=== PATIENT | male | born 1935 | race Hispanic/Latino ===

== ENCOUNTER 2018-03-16 17:40 | Inpatient (IN) | payer MEDICARE, OTHER ==
[2018-03-16 17:59] VITALS: BMI 27.2
--- NOTE | 2018-03-16 19:36 | ED PDOC ---
Arrival/HPI - General Chief Complaint: Shortness Of Breath Time Seen by Provider: 03/16/18 18:34 Historian: Patient - History of Present Illness Narrative History of Present Illness (Text): 03/16/18 18:35 82 year old male, with past medical history of congestive heart failure with last known EF of 20% and MT, presents to the Emergency Department complaining of shortness of breath with exertion for past 2 weeks. Patient informs worsening symptoms associated with orthopnea and PND, prompting her to present to the ED for medical evaluation. Patient denies any other somatic complaints. Patient denies any fever, chills, nausea, vomiting, diarrhea, abdominal pain, chest pain, cough, headache, dizziness, neck pain, back pain, or any other complaints. Patient reports taking double her dose of Lasix (80mg) last night and 1 dose of Lasix (40mg) this morning. Patient informs compliance with his medications today, including Aspirin. PMD: Celso Walker: Dr. Irby Yarder Engineer: [facility] 03/16/18 22:55 Time/Duration: > week Symptom Onset: Gradual Symptom Course: Unchanged Activities at Onset: Light Context: Home Past Medical History - Provider Review Nursing Documentation Reviewed: Yes - Cardiac Hx Atrial Fibrillation: Yes Hx Congestive Heart Failure: Yes Hx Hypertension: Yes - Pulmonary Hx Respiratory Disorders: No - Neurological Hx Neurological Disorder: No - HEENT Hx HEENT Disorder: No - Renal Hx Renal Disorder: No - Endocrine/Metabolic Hx Endocrine Disorders: No - Hematological/Oncological Hx Blood Disorders: No - Integumentary Hx Dermatological Disorder: No - Musculoskeletal/Rheumatological Hx Musculoskeletal Disorders: No Hx Falls: No - Gastrointestinal Hx Gastrointestinal Disorders: No - Genitourinary/Gynecological Hx Genitourinary Disorders: No - Psychiatric Hx Psychophysiologic Disorder: No Hx Substance Use: No - Surgical History Other/Comment: pacemaker 2010 - Anesthesia Hx Anesthesia: Yes - Suicidal Assessment Feels Threatened In Home Enviroment: No Family/Social History - Physician Review Nursing Documentation Reviewed: Yes Family/Social History: No Known Family HX Smoking Status: Never Smoked Hx Alcohol Use: No Hx Substance Use: No Allergies/Home Meds Allergies/Adverse Reactions: Allergies No Known Allergies Allergy (Verified 03/16/18 18:07) Home Medications: Home Meds Medication Instructions Recorded Confirmed Apixaban [Eliquis] 5 mg PO DAILY 09/09/14 03/16/18 Atorvastatin Calcium [Lipitor] 10 mg PO DAILY 09/09/14 03/16/18 Nitroglycerin [Nitroglycerin 0.4 mg SL PRN PRN 09/09/14 03/16/18 Lingual Aerosol] Furosemide [Lasix] 40 mg PO BID 03/16/18 03/16/18 Lisinopril 30 mg PO DAILY 03/16/18 03/16/18 Metoprolol Tartrate [Lopressor] 50 mg PO BID 03/16/18 03/16/18 Review of Systems - Physician Review All systems were reviewed & negative as marked: Yes - Review of Systems Constitutional: absent: Fevers Respiratory: SOB. absent: Cough Cardiovascular: DAS. absent: Chest Pain Gastrointestinal: absent: Abdominal Pain, Diarrhea, Nausea, Vomiting Musculoskeletal: absent: Back Pain, Neck Pain Neurological: absent: Headache, Dizziness Physical Exam Vital Signs Reviewed: Yes Vital Signs Temp Pulse Resp BP Pulse Ox 03/16/18 18:06 98 03/16/18 17:59 97.6 F 60 18 109/86 96 Temperature: Afebrile Blood Pressure: Normal Pulse: Regular Respiratory Rate: Normal Appearance: Positive for: Well-Appearing, Non-Toxic, Comfortable Pain Distress: None Mental Status: Positive for: Alert and Oriented X 3 - Systems Exam Head: Present: Atraumatic, Normocephalic Pupils: Present: PERRL Extroacular Muscles: Present: EOMI Conjunctiva: Present: Normal Mouth: Present: Moist Mucous Membranes Neck: Present: Normal Range of Motion Respiratory/Chest: Present: Good Air Exchange, Other (Bilateral crackles). No: Respiratory Distress, Accessory Muscle Use Cardiovascular: Present: Regular Rate and Rhythm, Normal S1, S2. No: Murmurs Abdomen: No: Tenderness, Distention, Peritoneal Signs Back: Present: Normal Inspection Upper Extremity: Present: Normal Inspection. No: Cyanosis, Edema Lower Extremity: Present: Edema (bilateral +2 pitting edema ) Neurological: Present: GCS=15, CN II-XII Intact, Speech Normal Skin: Present: Warm, Dry, Normal Color. No: Rashes Psychiatric: Present: Alert, Oriented x 3, Normal Insight, Normal Concentration Medical Decision Making ED Course and Treatment: 03/16/18 18:29 Impression: 82 year old male presents to the Emergency Department complaining of shortness of breath. Likely CHF exacerbation given crackles, b.l LE edema. Pt speaking in full sentences in NAD. No chest pain. No hx of blood clots. Plan: -- EKG -- Labs -- Chest X-ray -- Lasix -- Reassess and disposition Prior Visits: Notes and results from previous visits were reviewed. Progress Notes: 03/16/18 18:30 EKG: Ordered, reviewed, and independently interpreted the EKG. Rate : 61 BPM Rhythm : Paced rhythm Interpretation : No STEMI. 03/16/18 21:30 NO RUQ pain. No abdominal pain pt in NAD, breathing comfortably, speaking full sentences. BNP 50k, CHF exacerbation. Lasix ordered. appreciate consult w/. Dr. Gonzalez: to admit to her service. Consult order placed to Dr. Mendoza (Cards) - RAD Interpretation Radiology Orders: 03/16/18 18:35 CHEST TWO VIEWS (PA/LAT) [RAD] Stat - Medication Orders Current Medication Orders: Discontinued Medications Furosemide (Lasix) 40 mg IVP STAT STA Stop: 03/16/18 19:00 - Scribe Statement The provider has reviewed the documentation as recorded by the Scribe Raymond Ashraf. All medical record entries made by the Scribe were at my direction and personally dictated by me. I have reviewed the chart and agree that the record accurately reflects my personal performance of the history, physical exam, medical decision making, and the department course for this patient. I have also personally directed, reviewed, and agree with the discharge instructions and disposition. Disposition/Present on Arrival - Present on Arrival Any Indicators Present on Arrival: No History of DVT/PE: No History of Uncontrolled Diabetes: No Urinary Catheter: No History of Decub. Ulcer: No History Surgical Site Infection Following: None - Disposition Have Diagnosis and Disposition been Completed?: Yes Diagnosis: Acute CHF Disposition: HOSPITALIZED Disposition Time: 21:30 Patient Problems: Current Active Problems Problem Status Onset Acute CHF Acute Condition: GOOD
[2018-03-16 20:23] LABS: BASO # 0.01 K/mm3 (0.0-2.0); BASO % 0.1 % (0.0-3.0); EOS % 0.1 % (1.5-5.0); GRAN # 7.68 (1.4-6.5); GRAN % 79.6 % (50.0-68.0); HEMOGLOBIN 10.9 g/dL (14.0-18.0); LYMPH # 1.2 (1.2-3.4); LYMPH % 12.4 % (22.0-35.0); MEAN CELL VOLUME 87.3 fl (80.0-105.0); MEAN CORPUSCULAR HEMOGLOBIN 27.7 pg (25.0-35.0); MEAN CORPUSCULAR HGB CONC 31.8 g/dl (31.0-37.0); MEAN PLATELET VOLUME 10.9 fl (7.0-11.0); MONO # 0.8 (0.1-0.6); MONO % 7.8 % (1.0-6.0); RBC 3.93 10^6/uL (3.5-6.1); RED CELL DISTRIBUTION WIDTH 15.4 % (11.5-14.5); WHITE BLOOD COUNT 9.7 10^3/ul (4.5-11.0)
[2018-03-16 20:38] LABS: ALB/GLOB RATIO 1.2 (1.1-1.8); ALBUMIN 3.9 g/dL (3.0-4.8)
[2018-03-16 20:49] LABS: TROPONIN I 0.03 ng/mL
--- NOTE | 2018-03-16 23:14 | CARD ---
APPROVED REPORT Date of service: 03/16/2018 EKG Measurement Heart [id number] <Conclusion> AV sequential or dual chamber electronic pacemaker
[2018-03-17 07:10] LABS: MEAN CELL VOLUME 86.3 fl (80.0-105.0); MEAN CORPUSCULAR HEMOGLOBIN 27.4 pg (25.0-35.0); MEAN CORPUSCULAR HGB CONC 31.7 g/dl (31.0-37.0); RBC 3.65 10^6/uL (3.5-6.1); RED CELL DISTRIBUTION WIDTH 15.3 % (11.5-14.5); WHITE BLOOD COUNT 8.5 10^3/ul (4.5-11.0)
[2018-03-17 07:24] LABS: IRON 33 ug/dL (45-180)
[2018-03-17 07:32] LABS: ALB/GLOB RATIO 1.2 (1.1-1.8); ALBUMIN 3.4 g/dL (3.0-4.8); ALT/SGPT 461 U/L (7-56); AST/SGOT 504 U/L (17-59); BILIRUBIN,DIRECT 0.5 mg/dL (0.0-0.4); HDL CHOLESTEROL 33 mg/dL (29-60)
[2018-03-17 07:36] LABS: LDL CHOLESTEROL 63 mg/dL (0-129)
[2018-03-17 07:38] LABS: CALCIUM 8.7 mg/dL (8.4-10.5)
[2018-03-17 07:44] LABS: % IRON SATURATION 9 % (20-55); TOTAL IRON BINDING CAPACITY 376 ug/dL (261-462)
--- NOTE | 2018-03-17 09:46 | RAD ---
Date of service: 03/16/2018 HISTORY: sob COMPARISON: No prior. TECHNIQUE: Chest PA and lateral FINDINGS: LUNGS: No active pulmonary disease. PLEURA: No significant pleural effusion identified. No pneumothorax apparent. CARDIOVASCULAR: Moderate cardiomegaly. Dual lead pacemaker OSSEOUS STRUCTURES: No significant abnormalities. VISUALIZED UPPER ABDOMEN: Normal. OTHER FINDINGS: The aorta is mildly tortuous and calcified IMPRESSION: No active disease.
[2018-03-17 12:56] LABS: FOLATE > 20.0 ng/mL
[2018-03-17] MEDS: Milrinone 20mg/100ml D5W 100 ML IV PRN (17:47)
--- NOTE | 2018-03-17 18:53 | CARD ---
APPROVED REPORT Date of service: 03/17/2018 EXAM: Two-dimensional and M-mode echocardiogram with Doppler and color Doppler. INDICATION Congestive Heart Failure S/P AICD, CMP 2D DIMENSIONS Left Atrium (2D)5.2 (1.6-4.0cm)IVSd1.1 (0.7-1.1cm) LVDd6.2 (3.9-5.9cm)PWd1.2 (0.7-1.1cm) LVDs5.8 (2.5-4.0cm)FS (%) 6.7 % LVEF (%)14.7 (>50%) M-Mode DIMENSIONS Aortic Root3.70 (2.2-3.7cm)Aortic Cusp Exc.1.00 (1.5-2.0cm) Aortic Valve AoV Peak Cdsucfad576.0cm/sAoV VTI34.8cmAO Peak GR.16mmHg LVOT Peak Wemoeqbi94.2cm/sLVOT VTI15.20cmAO Mean GR.7mmHg Mitral Valve MV E Uzvgqhpj39.9cm/sMV A Fsctjguw22.5cm/sE/A ratio2.2 TDI Lateral E' Peak V5.65cm/sMedial E' Peak V3.90cm/sE/Lateral E'15.2 E/Medial E'22.0 Pulmonary Valve PV Peak Ghuhksgc18.2cm/sPV Peak Grad.2mmHg Tricuspid Valve TR Peak Xhoxvhvk951ws/sRAP [id number] Peak Gr.57mmHg DLMX71seVw LEFT VENTRICLE The Left Ventricle is mildly dilated. There is normal left ventricular wall thickness. The ejection fraction is severely impaired. EF-20% (on Primacor) There is global hypokinesis of the left ventricle. A fib No left ventricle thrombus noted on this study. There is no ventricular septal defect visualized. There is no left ventricular aneurysm. There is no mass noted in the left ventricle. RIGHT VENTRICLE The right ventricle is mildly to moderately dilated. There is normal right ventricular wall thickness. Systolic function is mildly to moderately reduced. ATRIA The left atrium is mildly dilated. The right atrium is mildly dilated. The interatrial septum is intact with no evidence for an atrial septal defect. AORTIC VALVE The aortic valve is calcified and displays decreased opening. There is trace aortic regurgitation. Aotic sclerosis Vs Mild As There is no aortic valvular vegetation. MITRAL VALVE The mitral valve is thickened but opens well. Mitral regurgitation is moderate. There is no mitral valve stenosis. There is no evidence of mitral valve prolapse. TRICUSPID VALVE The tricuspid valve leaflets are thickened , but open well. There is moderate tricuspid regurgitation.RVSP-67 mmof hg. There is moderate pulmonary hypertension. There is no tricuspid valve stenosis. There is no tricuspid valve prolapse or vegetation. PULMONIC VALVE The pulmonary valve is normal in structure. There is trace to mild pulmonic valvular regurgitation. There is no pulmonic valvular stenosis. GREAT VESSELS The aortic root is normal in size. The ascending aorta is normal in size. The pulmonary artery is normal. The IVC is dilated. PERICARDIAL EFFUSION There is small left pleural effusion. There is no pericardial effusion. <Conclusion> Four chamber dilatation, C/w CMP. The ejection fraction is severely impaired. EF-20% (on Primacor) There is trace aortic regurgitation. Aotic sclerosis Vs Mild As Mitral regurgitation is moderate. There is moderate tricuspid regurgitation.RVSP-67 mmof hg. There is moderate pulmonary hypertension. There is trace to mild pulmonic valvular regurgitation. The IVC is dilated. There is no pericardial effusion. There is small left pleural effusion.
--- NOTE | 2018-03-17 19:56 | CON ---
DATE OF CONSULTATION: 03/17/2018 CONSULT SERVICE: Cardiology. REASON FOR CONSULTATION: Followup of obstructive, but decompensated congestive heart failure, [id number]-[id number], secondary to systolic dysfunction. BRIEF CLINICAL HISTORY: This is an 82-year-old male with a past medical history significant for cardiomyopathy, decreased LV function, ejection fraction 20%, being followed by Dr. Mandujano at [facility], status post defibrillator placed 4-5 years ago, came in with a complaint of worsening shortness of breath. PAST HISTORY: Significant for congestive heart failure, atrial fibrillation, cardioversion and ICD placement, being followed by Dr. Mandujano at [facility], history of cardiac catheterization 3 years ago according to him and was told no significant blockage, medical treatment recommended, but he has mentioned that heart muscles are weak, ejection fraction low, not sure how low it is. PAST SURGICAL HISTORY: Significant for cataract surgery, history of AICD placed 3-4 years ago at [facility], history of paroxysmal atrial fibrillation. CURRENT MEDICATIONS: The patient is taking at home nitroglycerine sublingual, metoprolol 50 mg, lisinopril 30 mg, Lasix 40, atorvastatin 10, Eliquis 5 mg daily. ALLERGIES: NO KNOWN DRUG ALLERGIES. REVIEW OF SYSTEMS: As per HPI. PHYSICAL EXAMINATION: VITAL SIGNS: Height of the patient 5 feet 10 inches, weight of the patient 196 pounds, body mass index 34 kg/m2. Temperature afebrile, heart rate 63, blood pressure 125/90. HEENT: PERRLA, intact. NECK: Supple. No carotid bruit or thyromegaly. CHEST: Clear to auscultation. HEART: S1 and S2, regular. ABDOMEN: Soft. EXTREMITIES: Clubbing and cyanosis negative. BLOOD WORKUP: WBC 8.5, hemoglobin 10, hematocrit 31.5, platelet count 341. Chemistry shows sodium 130, potassium 4.7, chloride 104, carbon dioxide 27, anion gap of 12, BUN 39, creatinine 2.7. BNP 49,900. Chest x-ray consistent with cardiomegaly and congestive heart failure. EKG shows AV sequential pacing, underlying normal sinus mechanism. IMPRESSION: This is an 82-year-old male with a past medical history significant for alcohol abuse in the past, history of cardiomyopathy, not sure ischemic or nonischemic, being followed by Dr. Mandujano at [facility], he is status post automatic implantable cardioverter-defibrillator 3-4 years ago, cardiac catheterization, was told no significant blockage, but heart muscles are weak, was on lisinopril, got the renal function worse, so was on hold and then admitted here with acute decompensated congestive heart failure, elevated BNP, chest x-ray consistent with cardiomyopathy, history of paroxysmal atrial fibrillation, on Eliquis, congestive heart failure [id number] secondary to systolic dysfunction. RECOMMENDATION: We will get an echo to assess LV function and valvular function. Continue Eliquis, continue Lasix, continue lisinopril, monitor renal function closely. Further recommendation depending upon the hospital course. We will get the lipid profile, TSH, hemoglobin A1c, and do further anemia workup. Thank you, Dr. Gonzalez, for providing us the opportunity in taking care of the patient. We will follow with you. Dayan Saez MD
[2018-03-18 07:25] LABS: BASO # 0.03 K/mm3 (0.0-2.0); BASO % 0.3 % (0.0-3.0); EOS # 0.2 (0.0-0.7); EOS % 1.9 % (1.5-5.0); GRAN # 7.15 (1.4-6.5); GRAN % 78.7 % (50.0-68.0); LYMPH # 1.2 (1.2-3.4); LYMPH % 13.2 % (22.0-35.0); MEAN CELL VOLUME 85.4 fl (80.0-105.0); MEAN CORPUSCULAR HEMOGLOBIN 27.4 pg (25.0-35.0); MEAN CORPUSCULAR HGB CONC 32.1 g/dl (31.0-37.0); MEAN PLATELET VOLUME 10.9 fl (7.0-11.0); MONO # 0.5 (0.1-0.6); MONO % 5.9 % (1.0-6.0); RBC 3.28 10^6/uL (3.5-6.1); WHITE BLOOD COUNT 9.1 10^3/ul (4.5-11.0)
[2018-03-18] MEDS: Milrinone 20mg/100ml D5W 100 ML IV PRN (07:34)
[2018-03-18 08:10] LABS: CALCIUM 8.2 mg/dL (8.4-10.5)
--- NOTE | 2018-03-18 08:12 | CP.PCM.PN ---
Subjective - Date & Time of Evaluation Date of Evaluation: 03/18/18 Time of Evaluation: 06:20 - Subjective Subjective: Awake, alert, no distress,denies chest pain Reason for consultation and follow up: Cardiac evaluation of shortness of breath,exacerbation of acute on chronic systolic dysfunction congestive heart failure. Seen and examined by me and Dr. Mendoza Objective - Vital Signs/Intake and Output Vital Signs (last 24 hours): Temp Pulse Resp BP Pulse Ox 98.8 F 61 18 98/56 L 98 03/18/18 06:00 03/18/18 07:34 03/18/18 06:00 03/18/18 07:34 03/18/18 06:00 Intake and Output: 03/18/18 03/18/18 06:59 18:59 Intake Total 608 100 Output Total 2400 Balance -1792 100 - Medications Medications: Current Medications Apixaban (Eliquis) 5 mg PO DAILY [facility]; Protocol Last Admin: 03/17/18 09:53 Dose: 5 mg Apixaban (Eliquis) 2.5 mg PO BID [facility]; Protocol Atorvastatin Calcium (Lipitor) 10 mg PO DAILY [facility] Last Admin: 03/17/18 09:54 Dose: 10 mg Famotidine (Pepcid) 40 mg PO HS [facility] Last Admin: 03/17/18 21:59 Dose: 40 mg Furosemide (Lasix) 40 mg IVP Q12 [facility] Last Admin: 03/17/18 21:59 Dose: 40 mg Milrinone Lactate/Dextrose (Primacor 20mg/100ml D5w) 100 mls @ 5.334 mls/hr IV .[id number] PRN; Protocol PRN Reason: TITRATE PER MD ORDER Last Admin: 03/18/18 07:34 Dose: 0.2 mcg/kg/min, 5.334 mls/hr Losartan Potassium (Cozaar) 25 mg PO DAILY [facility] Metoprolol Tartrate (Lopressor) 50 mg PO BID [facility] Last Admin: 03/17/18 17:43 Dose: 50 mg Nitroglycerin (Nitrostat Sl Tab) 0.4 mg SL Q5M PRN PRN Reason: CHEST PAIN Thiamine HCl (Vitamin B1 Tab) 100 mg PO DAILY [facility] - Labs Labs: 03/18/18 06:00 03/17/18 06:30 - Constitutional Appears: Non-toxic, No Acute Distress - Eye Exam Eye Exam: Normal appearance Pupil Exam: NORMAL ACCOMODATION - ENT Exam ENT Exam: Mucous Membranes Moist - Respiratory Exam Respiratory Exam: Decreased Breath Sounds, Clear to Ausculation Bilateral, NORMAL BREATHING PATTERN - Cardiovascular Exam Cardiovascular Exam: +S1, +S2 Additional comments: AICD/PPM V pacing at 60's - GI/Abdominal Exam GI & Abdominal Exam: Soft, Normal Bowel Sounds - Extremities Exam Additional comments: 1-2+ edema - Neurological Exam Neurological Exam: Alert, Awake, Oriented x3 - Psychiatric Exam Psychiatric exam: Normal Affect, Normal Mood - Skin Skin Exam: Dry, Normal Color, Warm Assessment and Plan - Assessment and Plan (Free Text) Assessment: An 82 year old male who came in to the ER due to worsening shortness of breath for the past 2 weeks. history of congestive heart failure, dilated cardiomyopathy, decreased LV function, LVEF 20 %. Follows up with Dr. Mandujano at [facility]. history of AICD 4-5 years ago, PPM 2009,hypertension, history of atrial fibrillation (on Eliquis). compliant with his medications. Exacerbation of acute on chronic systolic dysfunction congestive heart failure. started on Primacor drip. Plan: Denies shortness of breath,denies chest pain On Primacor drip,continue drip for 48-72 Hours. Echo done -Four chamber dilatation, consistent with cardiomyopathy Severely impaired ejection fraction LVEF 20 % with Primacor Trace AR, moderate MR/TR, RVSP 67 mmHg Moderate Pulmonary hypertension Trace to mild Pulmonic valve regurgitation No pericardial effusion, small pleural left effusion Continue Lasix to diurese On Eliquis 2.5 mgBID Lipitor 10 mg daily, Lasix 40 mg every 12 hours Cozaar 25m g daily, Lopressor 50 mg BID, Milrinone drip 0.2 mg/kg/min Heart rate V-paving at 60's Blood pressure controlled Replenish potassium Continue current treatment Continue current medications Chart reviewed Will follow up Plan and treatment discussed with Dr. Mendoza
[2018-03-18] MEDS ORDERED: Potassium Chloride 20 mEq ER Tab PO STA (08:37)
--- NOTE | 2018-03-18 09:05 | CP.PCM.CON ---
<Deuce Vick - Last Filed: 03/18/18 14:24> History of Present Illness - History of Present Illness History of Present Illness: Deuce Vick DO, PGY-2: Nephrology Consult Note for Dr. Elizabeth 82 year old [place] male with a past medical history of CHF with EF of 20%, pacemaker, atrial fibrillation on Eliquis, CKD, and emphysema who [place] [facility] with 3 months of worsening dyspnea. He reports walking 17 to 18 city blocks, but for some reason three months ago he has gradually developed worsened shortness of breath and now unable to walk 2 city blocks without stopping. He reports first knowing that he had some renal insufficiency 3 months ago. He reports that at the time his kidney function was noted to be impaired his Lisinopril was stopped immediatelty. He reports taking Lasix 80 mg daily in the morning and 40 mg in the evening; however, increasing the evening dose to 80 mg a day or so before he came into the ED here in [place]. On review of system he admits to dyspnea, malaise, decreased appetite, increased lower extremity edema and dyspnea. He denies chest pain, dysuria, polyruia, nausea, vomiting, diarrhea, anorexia, or dysgeusia. He denies taking NSAIDs. 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 Review of Systems - Review of Systems All systems: reviewed and no additional remarkable complaints except (as per HPI) Past Patient History - Past Medical History & Family History Past Medical History?: Yes - Past Social History Smoking Status: Former Smoker - CARDIAC Hx Congestive Heart Failure: Yes Hx Hypertension: Yes - PULMONARY Hx Respiratory Disorders: No - NEUROLOGICAL Hx Neurological Disorder: No - HEENT Hx HEENT Problems: Yes Hx Cataracts: Yes Hx Glaucoma: Yes - RENAL Hx Renal Failure: Yes (high BUN(as per PT)) - ENDOCRINE/METABOLIC Hx Endocrine Disorders: Yes Hx Diabetes Mellitus Type 2: Yes (borderline/diet control) - HEMATOLOGICAL/ONCOLOGICAL Hx Blood Disorders: Yes Hx Anemia: Yes - INTEGUMENTARY Hx Dermatological Problems: No - MUSCULOSKELETAL/RHEUMATOLOGICAL Hx Musculoskeletal Disorders: Yes Hx Arthritis: Yes Hx Falls: No Other/Comment: sciatica - GASTROINTESTINAL Hx Gastrointestinal Disorders: No - GENITOURINARY/GYNECOLOGICAL Hx Genitourinary Disorders: No - PSYCHIATRIC Hx Psychophysiologic Disorder: No Hx Substance Use: No - SURGICAL HISTORY Other/Comment: pacemaker 2010, cataract removal - ANESTHESIA Hx Anesthesia: Yes Meds Allergies/Adverse Reactions: Allergies Allergy/AdvReac Type Severity Reaction Status Date / Time No Known Allergies Allergy Verified 03/16/18 18:07 - Medications Medications: Current Medications Apixaban (Eliquis) 5 mg PO DAILY [facility]; Protocol Last Admin: 03/17/18 09:53 Dose: 5 mg Apixaban (Eliquis) 2.5 mg PO BID [facility]; Protocol Atorvastatin Calcium (Lipitor) 10 mg PO DAILY [facility] Last Admin: 03/17/18 09:54 Dose: 10 mg Famotidine (Pepcid) 40 mg PO HS [facility] Last Admin: 03/17/18 21:59 Dose: 40 mg Furosemide (Lasix) 40 mg IVP Q12 [facility] Last Admin: 03/17/18 21:59 Dose: 40 mg Milrinone Lactate/Dextrose (Primacor 20mg/100ml D5w) 100 mls @ 5.334 mls/hr IV .[id number] PRN; Protocol PRN Reason: TITRATE PER MD ORDER Last Admin: 03/18/18 07:34 Dose: 0.2 mcg/kg/min, 5.334 mls/hr Losartan Potassium (Cozaar) 25 mg PO DAILY [facility] Metoprolol Tartrate (Lopressor) 50 mg PO BID [facility] Last Admin: 03/17/18 17:43 Dose: 50 mg Nitroglycerin (Nitrostat Sl Tab) 0.4 mg SL Q5M PRN PRN Reason: CHEST PAIN Thiamine HCl (Vitamin B1 Tab) 100 mg PO DAILY [facility] Physical Exam - Constitutional Appears: Non-toxic, No Acute Distress - Head Exam Head Exam: ATRAUMATIC, NORMOCEPHALIC - Eye Exam Eye Exam: EOMI, Normal appearance - ENT Exam ENT Exam: Mucous Membranes Moist - Neck Exam Neck exam: Positive for: Normal Inspection Additional comments: no significant JVD - Respiratory Exam Respiratory Exam: Rales (right greater than left), Wheezes (bilateral), NORMAL BREATHING PATTERN - Cardiovascular Exam Cardiovascular Exam: +S1, +S2 Additional comments: barely audible heart sounds - GI/Abdominal Exam GI & Abdominal Exam: Normal Bowel Sounds. absent: Guarding, Rebound - Extremities Exam Extremities exam: Positive for: normal inspection, pedal pulses present. Negative for: calf tenderness - Neurological Exam Neurological exam: Alert, CN II-XII Intact, Oriented x3 - Psychiatric Exam Psychiatric exam: Normal Affect, Normal Mood - Skin Skin Exam: Dry, Intact, Normal Color, Warm Results - Vital Signs Recent Vital Signs: Last Vital Signs Temp 98.8 F 03/18/18 06:00 Pulse 61 03/18/18 07:34 Resp 18 03/18/18 06:00 BP 98/56 L 03/18/18 07:34 Pulse Ox 98 03/18/18 06:00 - Labs Result Diagrams: 03/18/18 06:00 03/18/18 07:00 Labs: Laboratory Results - last 24 hr 03/17/18 03/17/18 03/18/18 06:30 06:30 06:00 WBC 9.1 RBC 3.28 L Hgb 9.0 L Hct 28.0 L MCV 85.4 MCH 27.4 MCHC 32.1 RDW 15.0 H Plt Count 299 MPV 10.9 Gran % 78.7 H Lymph % (Auto) 13.2 L [place] % (Auto) 5.9 Eos % (Auto) 1.9 Baso % (Auto) 0.3 Gran # 7.15 H Lymph # (Auto) 1.2 [place] # (Auto) 0.5 Eos # (Auto) 0.2 Baso # (Auto) 0.03 Sodium Potassium Chloride Carbon Dioxide Anion Gap BUN Creatinine Est GFR ( Amer) Est GFR (Non-Af Amer) Random Glucose Hemoglobin A1c 6.9 H Calcium Phosphorus Magnesium Vitamin B12 882 Folate > 20.0 03/18/18 07:00 WBC RBC Hgb Hct MCV MCH MCHC RDW Plt Count MPV Gran % Lymph % (Auto) [place] % (Auto) Eos % (Auto) Baso % (Auto) Gran # Lymph # (Auto) [place] # (Auto) Eos # (Auto) Baso # (Auto) Sodium 137 Potassium 3.4 L Chloride 101 Carbon Dioxide 29 Anion Gap 10 BUN 48 H Creatinine 2.8 H Est GFR ( Amer) 26 Est GFR (Non-Af Amer) 22 Random Glucose 111 H Hemoglobin A1c Calcium 8.2 L Phosphorus 3.0 Magnesium 2.1 Vitamin B12 Folate Assessment & Plan (1) DOREEN (acute kidney injury) Assessment and Plan: Likely secondary to cardiorenal syndrome Follow up renal US, PTH, 25-hydroxyvitamin D, urine total protein to creatinine ratio, urine microalbumin to creatinine ratio, urine to total protein to creatinine ratio Status: Acute (2) Acute CHF Assessment and Plan: Agree with Milrinone renally dosed Lasix 40 mg BID Status: Acute (3) Atrial fibrillation Assessment and Plan: Eliquis 2.5 mg BID Metoprolol Tartarate 50 mg BID Status: Acute (4) Iron deficiency Assessment and Plan: Ferrous sucrose 100 mg IVP daily Status: Acute - Assessment and Plan (Free Text) Assessment: 82 year old male with a past medical history of systolic HF, atrial fibrillation on Eliquis, emphysema, and CKD who presents with worsening exertional dyspnea and was found to an acute CHF exacerbation and DOREEN on CKD. We will continue to follow with you. - Date & Time Date: 03/18/18 Time: 10:02 <Stew Elizabeth - Last Filed: 03/19/18 07:38> Meds - Medications Medications: Current Medications Apixaban (Eliquis) 5 mg PO DAILY [facility]; Protocol Last Admin: 03/17/18 09:53 Dose: 5 mg Apixaban (Eliquis) 2.5 mg PO BID [facility]; Protocol Last Admin: 03/18/18 17:52 Dose: 2.5 mg Atorvastatin Calcium (Lipitor) 10 mg PO DAILY [facility] Last Admin: 03/18/18 10:07 Dose: 10 mg Famotidine (Pepcid) 40 mg PO HS [facility] Last Admin: 03/18/18 21:34 Dose: Not Given Furosemide (Lasix) 40 mg IVP 0600,1800 [facility] Last Admin: 03/19/18 06:54 Dose: 40 mg Guaifenesin (Robitussin) 100 mg PO Q4H PRN PRN Reason: Cough Last Admin: 03/18/18 17:52 Dose: 100 mg Milrinone Lactate/Dextrose (Primacor 20mg/100ml D5w) 100 mls @ 5.334 mls/hr IV .[id number] PRN; Protocol PRN Reason: TITRATE PER MD ORDER Last Admin: 03/19/18 03:38 Dose: 0.2 mcg/kg/min, 5.334 mls/hr Iron Sucrose 100 mg/ Sodium (Chloride) 105 mls @ 210 mls/hr IVPB DAILY [facility] Stop: 03/22/18 10:29 Last Admin: 03/18/18 14:45 Dose: 210 mls/hr Losartan Potassium (Cozaar) 25 mg PO DAILY [facility] Metoprolol Tartrate (Lopressor) 50 mg PO BID [facility] Last Admin: 03/18/18 17:52 Dose: 50 mg Nitroglycerin (Nitrostat Sl Tab) 0.4 mg SL Q5M PRN PRN Reason: CHEST PAIN Spironolactone (Aldactone) 12.5 mg PO BID [facility] Last Admin: 03/18/18 17:52 Dose: 12.5 mg Thiamine HCl (Vitamin B1 Tab) 100 mg PO DAILY [facility] Last Admin: 03/18/18 10:07 Dose: 100 mg Results - Vital Signs Recent Vital Signs: Last Vital Signs Temp 98.8 F 03/19/18 06:00 Pulse 59 L 03/19/18 06:00 Resp 18 03/19/18 06:00 BP 118/57 L 03/19/18 06:54 Pulse Ox 97 03/19/18 06:00 - Labs Result Diagrams: 03/18/18 06:00 03/18/18 07:00 Labs: Laboratory Results - last 24 hr 03/18/18 03/18/18 03/18/18 06:00 06:30 07:00 WBC 9.1 RBC 3.28 L Hgb 9.0 L Hct 28.0 L MCV 85.4 MCH 27.4 MCHC 32.1 RDW 15.0 H Plt Count 299 MPV 10.9 Gran % 78.7 H Lymph % (Auto) 13.2 L [place] % (Auto) 5.9 Eos % (Auto) 1.9 Baso % (Auto) 0.3 Gran # 7.15 H Lymph # (Auto) 1.2 [place] # (Auto) 0.5 Eos # (Auto) 0.2 Baso # (Auto) 0.03 Sodium 137 Potassium 3.4 L Chloride 101 Carbon Dioxide 29 Anion Gap 10 BUN 48 H Creatinine 2.8 H Est GFR ( Amer) 26 Est GFR (Non-Af Amer) 22 Random Glucose 111 H Calcium 8.2 L Phosphorus 3.0 Magnesium 2.1 Ferritin 29.7 25-OH Vitamin D Total Urine Color Urine Appearance Urine pH Ur Specific [place] Urine Protein Urine Glucose (UA) Urine Ketones Urine Blood Urine Nitrate Urine Bilirubin Urine Urobilinogen Ur Leukocyte Esterase Ur Random Creatinine Ur Random Sodium Ur Random Urea Nitrogn 03/18/18 03/18/18 03/18/18 08:45 08:45 08:45 WBC RBC Hgb Hct MCV MCH MCHC RDW Plt Count MPV Gran % Lymph % (Auto) [place] % (Auto) Eos % (Auto) Baso % (Auto) Gran # Lymph # (Auto) [place] # (Auto) Eos # (Auto) Baso # (Auto) Sodium Potassium Chloride Carbon Dioxide Anion Gap BUN Creatinine Est GFR ( Amer) Est GFR (Non-Af Amer) Random Glucose Calcium Phosphorus Magnesium Ferritin 25-OH Vitamin D Total Urine Color Yellow Urine Appearance Clear Urine pH 6.5 Ur Specific [place] <= 1.005 Urine Protein Negative Urine Glucose (UA) Negative Urine Ketones Negative Urine Blood Negative Urine Nitrate Negative Urine Bilirubin Negative Urine Urobilinogen 0.2 Ur Leukocyte Esterase Negative Ur Random Creatinine Ur Random Sodium 105 Ur Random Urea Nitrogn 372 03/18/18 03/18/18 08:45 10:30 WBC RBC Hgb Hct MCV MCH MCHC RDW Plt Count MPV Gran % Lymph % (Auto) [place] % (Auto) Eos % (Auto) Baso % (Auto) Gran # Lymph # (Auto) [place] # (Auto) Eos # (Auto) Baso # (Auto) Sodium Potassium Chloride Carbon Dioxide Anion Gap BUN Creatinine Est GFR ( Amer) Est GFR (Non-Af Amer) Random Glucose Calcium Phosphorus Magnesium Ferritin 25-OH Vitamin D Total 40.5 Urine Color Urine Appearance Urine pH Ur Specific [place] Urine Protein Urine Glucose (UA) Urine Ketones Urine Blood Urine Nitrate Urine Bilirubin Urine Urobilinogen Ur Leukocyte Esterase Ur Random Creatinine 35 Ur Random Sodium Ur Random Urea Nitrogn Attending/Attestation - Attestation I have personally seen and examined this patient.: Yes I have fully participated in the care of the patient.: Yes I have reviewed all pertinent clinical information: Yes Notes (Text): Patient seen and examined; I agree with the resident's note as above with the following additions/edits: 82 yo M w/ pmh of cardiomyopathy s/p AICD, afib on eliquis, and worsening renal failure, admitted with acute decompensated systolic CHF, nephrology being consulted for renal insufficiency; Patient reports worsening dyspnea lately and overall has gained ~13 lbs over past few months; he has known about his renal insufficiency and says that serum creatinine was at one point in the 3's and so he was taken off lisinopril; Patient on this admission started on inotropic support by cardiology with abilio cavazos; hemodynamically stable and responding to bolus doses of IV diuretics with lasix 40 mg q12h, achieving 1.8L neg fluid balance; symptomatically improved but still evidence of volume overload on exam with elevated JVD and bilateral lower ext edema; Renal function currently stable; mild increase in serum creatinine although patient did receive single dose of TONIA inhibitor yesterday; will hold all TONIA inhibitors/ARBs for now but may be able to restart at low dose tomorrow if renal function remains stable; Mild hypokalemia noted, supplemented; will start low dose aldactone 12.5 mg bid to help offset hypokalemia and ensuing metabolic alkalosis from loop diuretics; On B-blockers, continue per cardiology; Anemia, likely due to renal insufficiency/chronic disease but has iron deficiency component; will start IV iron 100 mg daily x 5 doses; Thank you for this referral, please feel free to contact us at any time.
[2018-03-18 09:14] LABS: PH,URINE 6.5 (4.7-8.0); URINE APPEARANCE CLEAR (CLEAR); URINE BILIRUBIN NEGATIVE (NEGATIVE); URINE BLOOD NEGATIVE (NEGATIVE); URINE COLOR YELLOW (YELLOW); URINE GLUCOSE (UA) NEGATIVE (NEGATIVE); URINE LEUKOCYTE ESTERASE NEGATIVE Leu/uL (NEGATIVE); URINE PROTEIN NEGATIVE mg/dL (<30 mg/dL); URINE UROBILINOGEN 0.2 E.U./dL (<1 E.U./dL)
--- NOTE | 2018-03-18 13:08 | US ---
Date of service: 03/18/2018 HISTORY: [email or web address] COMPARISON: None. TECHNIQUE: Sonographic evaluation of the right upper quadrant of the abdomen. FINDINGS: LIVER: Measures 17.5 cm in length. Hepatopedal blood flow. Fatty infiltration manifest ultrasonographically as increased echogenicity of the liver parenchyma. No mass. No intrahepatic bile duct dilatation. GALLBLADDER: Unremarkable. No gallstones. COMMON BILE DUCT: Measures 5.5 mm. No stones. No dilatation. PANCREAS: Unremarkable as visualized. No mass. No ductal dilatation. RIGHT KIDNEY: Measures 4.5 x 10.7 cm in length. Normal echogenicity. No calculus, mass, or hydronephrosis. AORTA: No aneurysmal dilatation. IVC: Unremarkable. OTHER FINDINGS: Incidental right pleural effusion. IMPRESSION: Hepatic steatosis without focal liver abnormality. Otherwise unremarkable study.
--- NOTE | 2018-03-18 13:09 | US ---
Date of service: 03/18/2018 PROCEDURE: Ultrasound of the Kidneys HISTORY: renal failure COMPARISON: None available. TECHNIQUE: Sonogram of the kidneys. FINDINGS: RIGHT KIDNEY: Measures: 5.4 x 5.8 x 10.8 cm. Normal in size, contour and echogenicity. No stone, solid mass lesion or hydronephrosis visualized. Incidental upper pole cyst 1.5 x 1.9 cm LEFT KIDNEY: Measures: 6.1 x 10.8 cm. Normal in size, contour and echogenicity. No stone, solid mass lesion or hydronephrosis visualized. OTHER FINDINGS: None. IMPRESSION: No significant or acute findings to account for/ related to the clinical presentation. Additional benign and/or incidental findings described above.
[2018-03-18] MEDS: guaiFENesin 100 mg/5 ml Syrup UD PO PRN ×2 (13:47→17:52)
--- NOTE | 2018-03-19 01:32 | PN ---
DATE: 03/18/2018 SUBJECTIVE: Patient is an 82-year-old male. Patient seen and examined at the bedside, looking comfortable. No fever. No chill. No nausea, vomiting, or diarrhea. No hematuria, no hematochezia. No headache. No dizziness. No chest pain. No palpitation. PHYSICAL EXAMINATION: VITAL SIGNS: Temperature 98.8, pulse 51, respiratory rate 18, blood pressure 98/56, pulse oximetry 98%. HEENT: Head normocephalic and atraumatic. Eyes, PERRLA. Extraocular movements intact. Conjunctivae clear. Nose patent. Mucous membranes moist. NECK: Supple. No carotid bruit. No JVD or thyromegaly. CHEST: Bilaterally symmetrical. HEART: S1, S2 positive. LUNGS: Clear to auscultation. ABDOMEN: Soft. Bowel sounds present. No organomegaly. EXTREMITIES: No edema. No cyanosis. NEUROLOGIC: Patient is awake and alert. Moving all 4 extremities. No focal deficits. Obeying simple orders. LABORATORY DATA: White blood cells 9.1, hemoglobin 9, hematocrit 28, platelets 299. Sodium 137, potassium 3.4, BUN 48, creatinine 2.8, glucose 111. Hemoglobin A1c 6.9, B12 882. Calcium 8.2. ASSESSMENT AND PLAN: Mr. Ashley Rios is an 82-year-old male with acute kidney injury likely secondary to cardiorenal syndrome. Renal ultrasound ordered. Parathyroid hormone, 25-hydroxyvitamin D, urine total protein to creatinine ratio, urine microalbuminuria to creatinine ratio, urine total protein to creatinine ratio ordered by the barrel finisher, acute congestive heart failure. Patient is on milrinone renally doses drip, continue Lasix b.i.d. Atrial fibrillation, patient is on Eliquis 2.5 mg b.i.d., metoprolol tartrate 50 b.i.d. Iron deficiency, patient is getting ferrous sucrose IV daily. Patient with history of atrial fibrillation, emphysema, worsening kidney condition, dyspnea, found to have acute congestive heart failure exacerbation and acute kidney injury on chronic kidney disease. I appreciated Nephrology input. Renal ultrasound done. No significant acute findings related to the clinical presentation. Gastrointestinal and deep venous thrombosis prophylaxes. Repeat labs. We will follow up. Rosa Gonzalez MD [facility] # [id number]
[2018-03-19] MEDS: Milrinone 20mg/100ml D5W 100 ML IV PRN (03:38)
[2018-03-19 06:32] VITALS: O2SAT 97
--- NOTE | 2018-03-19 06:43 | CP.PCM.PN ---
Subjective - Date & Time of Evaluation Date of Evaluation: 03/19/18 Time of Evaluation: 06:35 - Subjective Subjective: Lying in bed,Awake, alert, no distress,denies chest pain,slept well last night Reason for consultation and follow up: Cardiac evaluation of shortness of breath,exacerbation of acute on chronic systolic dysfunction congestive heart failure. Seen and examined by me and Dr. Mendoza Objective - Vital Signs/Intake and Output Vital Signs (last 24 hours): Temp Pulse Resp BP Pulse Ox 98.8 F 59 L 18 118/57 L 97 03/19/18 06:00 03/19/18 06:00 03/19/18 06:00 03/19/18 06:00 03/19/18 06:00 Intake and Output: 03/18/18 03/19/18 18:59 06:59 Intake Total 1700 164 Output Total 3800 Balance -2100 164 - Medications Medications: Current Medications Apixaban (Eliquis) 5 mg PO DAILY [facility]; Protocol Last Admin: 03/17/18 09:53 Dose: 5 mg Apixaban (Eliquis) 2.5 mg PO BID [facility]; Protocol Last Admin: 03/18/18 17:52 Dose: 2.5 mg Atorvastatin Calcium (Lipitor) 10 mg PO DAILY [facility] Last Admin: 03/18/18 10:07 Dose: 10 mg Famotidine (Pepcid) 40 mg PO HS [facility] Last Admin: 03/18/18 21:34 Dose: Not Given Furosemide (Lasix) 40 mg IVP 0600,1800 [facility] Guaifenesin (Robitussin) 100 mg PO Q4H PRN PRN Reason: Cough Last Admin: 03/18/18 17:52 Dose: 100 mg Milrinone Lactate/Dextrose (Primacor 20mg/100ml D5w) 100 mls @ 5.334 mls/hr IV .[id number] PRN; Protocol PRN Reason: TITRATE PER MD ORDER Last Admin: 03/19/18 03:38 Dose: 0.2 mcg/kg/min, 5.334 mls/hr Iron Sucrose 100 mg/ Sodium (Chloride) 105 mls @ 210 mls/hr IVPB DAILY [facility] Stop: 03/22/18 10:29 Last Admin: 03/18/18 14:45 Dose: 210 mls/hr Losartan Potassium (Cozaar) 25 mg PO DAILY [facility] Metoprolol Tartrate (Lopressor) 50 mg PO BID [facility] Last Admin: 03/18/18 17:52 Dose: 50 mg Nitroglycerin (Nitrostat Sl Tab) 0.4 mg SL Q5M PRN PRN Reason: CHEST PAIN Spironolactone (Aldactone) 12.5 mg PO BID [facility] Last Admin: 03/18/18 17:52 Dose: 12.5 mg Thiamine HCl (Vitamin B1 Tab) 100 mg PO DAILY [facility] Last Admin: 03/18/18 10:07 Dose: 100 mg - Labs Labs: 03/18/18 06:00 03/18/18 07:00 - Constitutional Appears: Non-toxic, No Acute Distress - Head Exam Head Exam: NORMAL INSPECTION, NORMOCEPHALIC - Eye Exam Eye Exam: Normal appearance Pupil Exam: NORMAL ACCOMODATION - ENT Exam ENT Exam: Mucous Membranes Moist - Respiratory Exam Respiratory Exam: Decreased Breath Sounds, NORMAL BREATHING PATTERN - Cardiovascular Exam Cardiovascular Exam: +S1, +S2 Additional comments: Telemetry Quality Assurance Inspector acing at 60's AICD/PPM - GI/Abdominal Exam GI & Abdominal Exam: Soft, Normal Bowel Sounds - Extremities Exam Extremities Exam: Full ROM Additional comments: 1-2+edema - Neurological Exam Neurological Exam: Alert, Awake, Oriented x3 - Psychiatric Exam Psychiatric exam: Normal Affect, Normal Mood - Skin Skin Exam: Dry, Normal Color, Warm Assessment and Plan - Assessment and Plan (Free Text) Assessment: An 82 year old male who came in to the ER due to worsening shortness of breath for the past 2 weeks. history of congestive heart failure, dilated ca rdiomyopathy, decreased LV function, LVEF 20 %. Follows up with Dr. Mandujano at [facility]. history of AICD 4-5 years ago, PPM 2009,hypertension, history of atrial fibrillation (on Eliquis). compliant with his medications. Exacerbation of acute on chronic systolic dysfunction congestive heart failure. started on Primacor drip. Echo done -Four chamber dilatation, consistent with cardiomyopathy, Severely impaired ejection fraction, LVEF 20 % with Primacor,Trace AR, moderate MR/TR, RVSP 67 mmHg, Moderate Pulmonary hypertension, Trace to mild Pulmonic valve regurgitation, No pericardial effusion, small pleural left effusion Plan: Slept well last night, no distress, denies shortness of breath On Primacor drip,continue drip for 48 Hours. Continue Lasix to diurese On Eliquis 2.5 mgBID Lipitor 10 mg daily, Lasix 40 mg every 12 hours Cozaar 25m g daily, Lopressor 50 mg BID, Milrinone drip 0.2 mg/kg/min Heart rate V-paving at 60's Blood pressure controlled Symptoms clinically improved May need home Primacor Continue current treatment Continue current medications Chart reviewed Will follow up Plan and treatment discussed with Dr. Mendoza
--- NOTE | 2018-03-19 07:32 | CP.PCM.PN ---
Subjective - Date & Time of Evaluation Date of Evaluation: 03/19/18 Time of Evaluation: 07:28 - Subjective Subjective: Deuce Vick DO, PGY-2: Nephrology Progress Note for Dr. Elizabeth Patient seen and examined at bedside. Patient reports feeling well. Physical therapist reports patient walked without any distress and was satting 96% on room air. Patient is insistent on leaving today. Objective - Vital Signs/Intake and Output Vital Signs (last 24 hours): Temp Pulse Resp BP Pulse Ox 98.8 F 59 L 18 118/57 L 97 03/19/18 06:00 03/19/18 06:00 03/19/18 06:00 03/19/18 06:54 03/19/18 06:00 Intake and Output: 03/19/18 03/19/18 06:59 18:59 Intake Total 164 Output Total 0 Balance -1886 - Medications Medications: Current Medications Apixaban (Eliquis) 5 mg PO DAILY SAMMY; Protocol Last Admin: 03/17/18 09:53 Dose: 5 mg Apixaban (Eliquis) 2.5 mg PO BID SAMMY; Protocol Last Admin: 03/18/18 17:52 Dose: 2.5 mg Atorvastatin Calcium (Lipitor) 10 mg PO DAILY SAMMY Last Admin: 03/18/18 10:07 Dose: 10 mg Famotidine (Pepcid) 40 mg PO HS SAMMY Last Admin: 03/18/18 21:34 Dose: Not Given Furosemide (Lasix) 40 mg IVP 0600,1800 SAMMY Last Admin: 03/19/18 06:54 Dose: 40 mg Guaifenesin (Robitussin) 100 mg PO Q4H PRN PRN Reason: Cough Last Admin: 03/18/18 17:52 Dose: 100 mg Milrinone Lactate/Dextrose (Primacor 20mg/100ml D5w) 100 mls @ 5.334 mls/hr IV .[id number] PRN; Protocol PRN Reason: TITRATE PER MD ORDER Last Admin: 03/19/18 03:38 Dose: 0.2 mcg/kg/min, 5.334 mls/hr Iron Sucrose 100 mg/ Sodium (Chloride) 105 mls @ 210 mls/hr IVPB DAILY SAMMY Stop: 03/22/18 10:29 Last Admin: 03/18/18 14:45 Dose: 210 mls/hr Losartan Potassium (Cozaar) 25 mg PO DAILY [facility] Metoprolol Tartrate (Lopressor) 50 mg PO BID [facility] Last Admin: 03/18/18 17:52 Dose: 50 mg Nitroglycerin (Nitrostat Sl Tab) 0.4 mg SL Q5M PRN PRN Reason: CHEST PAIN Spironolactone (Aldactone) 12.5 mg PO BID [facility] Last Admin: 03/18/18 17:52 Dose: 12.5 mg Thiamine HCl (Vitamin B1 Tab) 100 mg PO DAILY [facility] Last Admin: 03/18/18 10:07 Dose: 100 mg - Labs Labs: 03/18/18 06:00 03/18/18 07:00 - Constitutional Appears: Well, Non-toxic - Head Exam Head Exam: ATRAUMATIC, NORMOCEPHALIC - Eye Exam Eye Exam: EOMI, Normal appearance - ENT Exam ENT Exam: Mucous Membranes Moist - Respiratory Exam Respiratory Exam: Rales, Wheezes - Cardiovascular Exam Cardiovascular Exam: RRR, +S1, +S2 Additional comments: heart sounds were barely audible - GI/Abdominal Exam GI & Abdominal Exam: Soft, Normal Bowel Sounds - Extremities Exam Extremities Exam: absent: Calf Tenderness Additional comments: 1/4 pitting edema - Neurological Exam Neurological Exam: Alert, Awake, Oriented x3 - Psychiatric Exam Psychiatric exam: Normal Affect, Normal Mood - Skin Skin Exam: Dry, Intact, Normal Color, Warm Assessment and Plan (1) DOREEN (acute kidney injury) Assessment & Plan: DOREEN is likely secondary to cardiorenal syndrome Renal US demonstrates no hydronephrosis; incidental cyst in upper pole of right kidney Abdominal US shows findings consistent with hepatic steatosis and incidental right pleural effusion PTH pending 25-hydroxyvitamin D is 40 urine total protein to creatinine ratio pending urine microalbumin to creatinine ratio pending Status: Acute (2) Acute CHF Assessment & Plan: Agree with Milrinone renally dosed Lasix 40 mg BID Status: Acute (3) Atrial fibrillation Assessment & Plan: Eliquis 2.5 mg BID Metoprolol Tartarate 50 mg BID Status: Acute (4) Iron deficiency Assessment & Plan: Iron sucrose 100 mg IVP daily Status: Acute
[2018-03-19 07:53] LABS: BASO # 0.03 K/mm3 (0.0-2.0); BASO % 0.3 % (0.0-3.0); EOS # 0.3 (0.0-0.7); EOS % 2.7 % (1.5-5.0); GRAN # 6.97 (1.4-6.5); GRAN % 74.9 % (50.0-68.0); HEMOGLOBIN 9.6 g/dL (14.0-18.0); LYMPH # 1.2 (1.2-3.4); LYMPH % 12.5 % (22.0-35.0); MEAN CELL VOLUME 85.4 fl (80.0-105.0); MEAN CORPUSCULAR HEMOGLOBIN 27.5 pg (25.0-35.0); MEAN CORPUSCULAR HGB CONC 32.2 g/dl (31.0-37.0); MEAN PLATELET VOLUME 10.4 fl (7.0-11.0); MONO # 0.9 (0.1-0.6); MONO % 9.6 % (1.0-6.0); RBC 3.49 10^6/uL (3.5-6.1); RED CELL DISTRIBUTION WIDTH 15.2 % (11.5-14.5); WHITE BLOOD COUNT 9.3 10^3/ul (4.5-11.0)
[2018-03-19 08:15] LABS: ALB/GLOB RATIO 1.2 (1.1-1.8); ALBUMIN 3.1 g/dL (3.0-4.8); CALCIUM 8.4 mg/dL (8.4-10.5)
--- NOTE | 2018-03-19 10:39 | PN ---
DATE: 03/18/2018 Addendum to the progress note which is dictated by Gemini Hart. SUBJECTIVE: This is an addendum to progress note already written. The patient is known case of severe cardiomyopathy, AICD insertion and admitted with exacerbation of shortness of breath, probably exacerbation of acute on chronic LV systolic failure. The patient denied any chest pain, palpitation. The patient is on Primacor drip and clinically shortness of breath has improved. The patient's echo was done on 03/17/2018 showed fourth chamber dilatation with LV ejection fraction of 20% while the patient was on Primacor. Moderate pulmonary hypertension with RVSP 67 mmHg. Clinically, the patient is improving. The patient also has renal dysfunction. The patient is on Eliquis 2.5 b.i.d. because of history of atrial fibrillation in the past, Lipitor 10 mg daily, Lasix 40 mg every 12 hours, Cozaar 25 mg daily, Lopressor 50 b.i.d. We will continue to monitor closely and we will follow with you. The patient clinically improved. Dayan Mendoza MD
[2018-03-19] MEDS ORDERED: Potassium Chloride 20 mEq ER Tab PO ONE (12:00)
[2018-03-19 13:21] VITALS: BP 92/48; RESP 20; TEMP 97.1
[2018-03-19 14:36] VITALS: PULSE 67
--- NOTE | 2018-03-19 17:55 | CON ---
PULMONARY CONSULTATION DATE OF CONSULTATION: 03/18/2018 REFERRING PHYSICIAN: Rosa Gonzalez MD REASON FOR CONSULTATION: Cough and shortness of breath. HISTORY OF PRESENT ILLNESS: This is an 82-year-old gentleman with a known history of cardiomyopathy, congestive heart failure, history of DE, came into emergency room with worsening shortness of breath, orthopnea, leg swelling, seen by cardiology, presently sitting up in a chair, feels better, admits to have snoring and daytime sleepiness. No hemoptysis or emesis. No hematuria or diarrhea. Does have a leg swelling. PAST MEDICAL HISTORY: Cardiomyopathy with LV ejection fraction of 20% with atrial fibrillation, hypertension, cardiac arrhythmia requiring pacemaker. ALLERGIES: NONE KNOWN. SOCIAL HISTORY: Denies any smoking. No alcohol use. FAMILY HISTORY: Significant cardiopulmonary disease reported. MEDICATIONS: He is on Nitrostat every 5 minutes p.r.n., Aldactone 12.5 mg twice a day, Cozaar 25 mg daily, Eliquis 2.5 mg twice a day, IV iron sucrose given, Lasix 40 mg twice a day, Lipitor 10 mg daily, metoprolol tartrate 50 mg twice a day, nitroglycerin p.r.n. basis, Pepcid 40 mg h.s., started on IV Primacor, Robitussin 800 mg every 4 hours p.r.n., vitamin B 100 mg daily. REVIEW OF SYSTEMS: No headache or rhinitis. Admits to have snoring and shortness of breath. No chest pain. No abdominal pain. No diarrhea. Does have a leg swelling. PHYSICAL EXAMINATION: Sitting up in a chair in no acute distress. Temperature is 98.0, heart rate 63, respiratory rate 20, blood pressure 133/86, pulse ox 97% on room air. HEENT: Moist mucous membranes, crowded. NECK: Supple. No JVD. LUNGS: Have a few crackles at bases. HEART: S1 and S2. ABDOMEN: Soft, nontender. No organomegaly. EXTREMITIES: The patient has no edema. NEUROLOGICAL: Awake, alert, and follows simple commands. LABORATORY DATA: Hemoglobin 9.0, hematocrit 28.0, WBC 9.1, platelets 299. Sodium 137, potassium 3.4, chloride 101, bicarbonate 29, BUN 48, creatinine 2.8, glucose 111, calcium is 8.2, phosphorus 3.2, magnesium 2.1, and ferritin is 29. Vitamin D is 40. TSH is 0.54. An echocardiogram done yesterday shows right ventricular systolic pressure is 67, LV ejection fraction 20%, moderate valvular heart disease. Chest x-ray done on admission shows no infiltrate. IMPRESSION AND PLAN: Cardiomyopathy, cardiac arrhythmia requiring pacemaker. Has automatic implantable cardioverter defibrillator, hypertension, atrial fibrillation. May have sleep apnea syndrome, need to rule out sleep apnea to assure that is not adding into his cardiomyopathy. 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 Follow up labs in the morning. We will follow with you. Dayan Feliciano MD
--- NOTE | 2018-03-22 09:58 | PN ---
DATE: 03/19/2018 The progress note has been already dictated by Gemini Hart. LOCATION: The patient is in room 276, bed 1. REASON FOR CONSULTATION AND FOLLOWUP: CHF, renal dysfunction, cardiomyopathy, ejection fraction of 20%, history of AICD insertion, hypertension, atrial fibrillation. The patient was admitted with shortness of breath and the patient was put on Primacor drip. He has improved. Chest x-ray shows no significant CHF. BNP was elevated. Clinically, the patient improved with the therapy and he follows with the offset pressman at [facility], so he was advised to follow up with him and make appointment in the next few days for followup. The patient is on Eliquis 2.5 b.i.d., Lipitor 10 daily, Lasix 40 every 12 hours, Cozaar 25 mg daily, Lopressor 50 b.i.d. The patient was given instruction about the diet and follow daily weights and intake of fluid with also instructions were given to the patient. The patient will go to see his offset pressman in [place]. Dayan Mendoza MD
== END 2018-03-19 16:18 | disposition home or self-care (01) | DRG 291 ==
LOC: ED 17:40 → ERH 21:28 → 2RSO 22:48
PROVIDERS: ADMIT Internal Medicine; ATTEND Internal Medicine
DX: I13.0 Hypertensive heart and chronic kidney disease with heart failure and stage 1 through stage 4 chronic kidney disease, or unspecified chronic kidney disease (principal); I50.23 Acute on chronic systolic (congestive) heart failure; E87.3 Alkalosis; N17.9 Acute kidney failure, unspecified; I42.0 Dilated cardiomyopathy; I27.20 Pulmonary hypertension, unspecified; I48.0 Paroxysmal atrial fibrillation; J43.9 Emphysema, unspecified; D50.9 Iron deficiency anemia, unspecified; D63.8 Anemia in other chronic diseases classified elsewhere; E11.22 Type 2 diabetes mellitus with diabetic chronic kidney disease; E11.65 Type 2 diabetes mellitus with hyperglycemia; E83.41 Hypermagnesemia; E87.6 Hypokalemia; H40.9 Unspecified glaucoma; I25.2 Old myocardial infarction; N18.9 Chronic kidney disease, unspecified; Z79.01 Long term (current) use of anticoagulants; Z79.899 Other long term (current) drug therapy; Z87.891 Personal history of nicotine dependence; Z95.810 Presence of automatic (implantable) cardiac defibrillator

== ENCOUNTER 2018-09-21 16:58 | Inpatient (IN) | payer MEDICARE, OTHER ==
--- NOTE | 2018-09-21 18:24 | RAD ---
Date of service: 09/21/2018 HISTORY: Shortness of breath. COMPARISON: 03/16/2018. FINDINGS: LUNGS: No active pulmonary disease. PLEURA: No significant pleural effusion identified, no pneumothorax apparent. CARDIOVASCULAR: Atherosclerotic calcifications identified primarily aortic arch. Cardiomegaly. No evidence of acute, significant cardiovascular disease. Position/ configuration of pacemaker OSSEOUS STRUCTURES: No significant abnormalities. VISUALIZED UPPER ABDOMEN: Normal. OTHER FINDINGS: None. IMPRESSION: No active disease. No significant interval change compared to the prior examination(s).
--- NOTE | 2018-09-21 18:43 | ED PDOC ---
Arrival/HPI - General Chief Complaint: Shortness Of Breath Time Seen by Provider: 09/21/18 17:21 Historian: Patient - History of Present Illness Narrative History of Present Illness (Text): 09/21/18 18:40 83 year old male, whose past medical history includes congestive heart failure with last known EF of 20% and [place], Pacemaker, On Eliquis, presents to the emergency department complaining of generalized weakness, shortness of breath, and dizziness for the past couple of days. Patient reports last night he was unable to get up out of bed to use the bathroom. Patient is not on oxygen at home, but currently feels better with oxygen. Patient also reports decrease appetite, but denies any fever, chills, chest pain, nausea, vomiting, diarrhea, urinary symptoms, back pain, neck pain, headache, or any other complaints. PMD: Dr. Meza Time/Duration: Other (couple days) Symptom Onset: Gradual Symptom Course: Unchanged Activities at Onset: Light Context: Home Past Medical History - Provider Review Nursing Documentation Reviewed: Yes - Infectious Disease Hx of Infectious Diseases: None - Cardiac Hx Congestive Heart Failure: Yes Hx Hypertension: Yes - Pulmonary Hx Respiratory Disorders: No - Neurological Hx Neurological Disorder: No - HEENT Hx HEENT Disorder: Yes Hx Cataracts: Yes Hx Glaucoma: Yes - Renal Hx Renal Failure: Yes (high BUN(as per PT)) - Endocrine/Metabolic Hx Endocrine Disorders: Yes Hx Diabetes Mellitus Type 2: Yes (borderline/diet control) - Hematological/Oncological Hx Blood Disorders: Yes Hx Anemia: Yes - Integumentary Hx Dermatological Disorder: No - Musculoskeletal/Rheumatological Hx Musculoskeletal Disorders: Yes Hx Arthritis: Yes Hx Falls: No Other/Comment: sciatica - Gastrointestinal Hx Gastrointestinal Disorders: No - Genitourinary/Gynecological Hx Genitourinary Disorders: No - Psychiatric Hx Psychophysiologic Disorder: No Hx Substance Use: No - Surgical History Other/Comment: pacemaker 2010, cataract removal - Anesthesia Hx Anesthesia: Yes - Suicidal Assessment Feels Threatened In Home Enviroment: No Family/Social History - Physician Review Nursing Documentation Reviewed: Yes Family/Social History: No Known Family HX Smoking Status: Former Smoker Hx Alcohol Use: No Hx Substance Use: No Allergies/Home Meds Allergies/Adverse Reactions: Allergies No Known Allergies Allergy (Verified 09/21/18 17:10) Home Medications: Home Meds Medication Instructions Recorded Confirmed Apixaban [Eliquis] 5 mg PO DAILY 09/09/14 03/16/18 Atorvastatin Calcium [Lipitor] 10 mg PO DAILY 09/09/14 03/16/18 Nitroglycerin [Nitroglycerin 0.4 mg SL PRN PRN 09/09/14 03/16/18 Lingual Aerosol] Furosemide [Lasix] 40 mg PO BID 03/16/18 03/16/18 Lisinopril 30 mg PO DAILY 03/16/18 03/16/18 Metoprolol Tartrate [Lopressor] 50 mg PO BID 03/16/18 03/16/18 Review of Systems - Physician Review All systems were reviewed & negative as marked: Yes - Review of Systems Constitutional: absent: Fevers, Other (chills) Respiratory: SOB Cardiovascular: absent: Chest Pain Gastrointestinal: Appetite Changes. absent: Abdominal Pain, Diarrhea, Nausea, Vomiting Genitourinary Male: absent: Dysuria, Frequency, Hematuria Musculoskeletal: absent: Back Pain, Neck Pain Neurological: Dizziness. absent: Headache Physical Exam Vital Signs Temp Pulse Resp BP Pulse Ox 09/21/18 18:25 97.5 F L 09/21/18 16:59 72 22 122/92 H 98 Temperature: Afebrile Blood Pressure: Normal Pulse: Regular Respiratory Rate: Normal Appearance: Positive for: Well-Appearing, Non-Toxic, Comfortable Pain Distress: None Mental Status: Positive for: Alert and Oriented X 3 - Systems Exam Head: Present: Atraumatic, Normocephalic Pupils: Present: PERRL Extroacular Muscles: Present: EOMI Conjunctiva: Present: Normal Mouth: Present: Moist Mucous Membranes Neck: Present: Normal Range of Motion Respiratory/Chest: Present: Good Air Exchange, Wheezes (diffuse expiratory wheeze), Rales. No: Respiratory Distress, Accessory Muscle Use Cardiovascular: Present: Regular Rate and Rhythm, Normal S1, S2. No: Murmurs Abdomen: No: Tenderness, Distention, Peritoneal Signs Back: Present: Normal Inspection Upper Extremity: Present: Normal Inspection. No: Cyanosis, Edema Lower Extremity: Present: Edema (bilateral LE ) Neurological: Present: GCS=15, Speech Normal Skin: Present: Warm, Dry, Normal Color. No: Rashes Psychiatric: Present: Alert, Oriented x 3, Normal Insight, Normal Concentration Medical Decision Making ED Course and Treatment: 04/23/19 18:40 Impression: 83 year old male presents complaining of generalized weakness, shortness of breath and dizziness for the past couple of days. Plan: -- VBG -- EKG -- Labs -- Chest X-ray -- Reassess and disposition Prior Visits: Notes and results from previous visits were reviewed. Progress Notes: EKG shows Pacemaker at 72 BPM. Interpreted by me. Chest X-ray Dictator : Luca Brewer MD Report Date : 09/21/2018 18:21:05 IMPRESSION: No active disease. No significant interval change compared to the prior examination(s). 09/21/18 20:[address] Meza, pt's PCP, who is aware and agrees with plan. Accepts pt in to his service. Pt will be admitted to Telemetry for CHF exacerbation. Requests Dr. Saez, cardiology, on consult. - RAD Interpretation Radiology Orders: 09/21/18 17:38 CHEST PORTABLE [RAD] Stat Disposition/Present on Arrival - Present on Arrival Any Indicators Present on Arrival: No History of DVT/PE: No History of Uncontrolled Diabetes: No Urinary Catheter: No History of Decub. Ulcer: No History Surgical Site Infection Following: None - Disposition Have Diagnosis and Disposition been Completed?: Yes Diagnosis: Acute CHF Disposition: HOSPITALIZED Disposition Time: 20:15 Patient Plan: Admission Condition: STABLE
[2018-09-21 19:22] LABS: CALCIUM 9.1 mg/dL (8.4-10.5)
[2018-09-21 19:31] LABS: VENOUS BLOOD GAS BASE EXCESS 2.2 mmol/L (0.0-2.0); VENOUS BLOOD GAS PO2 45 mm/Hg (30-55); VENOUS BLOOD PH 7.41 (7.32-7.43)
[2018-09-21 19:31] LABS: BASO # 0.03 K/mm3 (0.0-2.0); BASO % 0.4 % (0.0-3.0); EOS # 0.1 (0.0-0.7); EOS % 0.6 % (1.5-5.0); HEMOGLOBIN 11.1 g/dL (14.0-18.0); LYMPH # 1.5 (1.2-3.4); LYMPH % 17.9 % (22.0-35.0); MEAN CELL VOLUME 78.9 fl (80.0-105.0); MEAN CORPUSCULAR HEMOGLOBIN 25.4 pg (25.0-35.0); MEAN CORPUSCULAR HGB CONC 32.2 g/dl (31.0-37.0); MEAN PLATELET VOLUME 11.6 fl (7.0-11.0); MONO # 0.7 (0.1-0.6); MONO % 8.5 % (1.0-6.0); RBC 4.37 10^6/uL (3.5-6.1); RED CELL DISTRIBUTION WIDTH 19.3 % (11.5-14.5); WHITE BLOOD COUNT 8.4 10^3/uL (4.5-11.0)
[2018-09-21 19:34] LABS: TROPONIN I 0.03 ng/mL
[2018-09-21 19:38] LABS: INR 1.96; PARTIAL THROMBOPLASTIN TIME 38.7 Seconds (26.9-38.3); PROTHROMBIN TIME 21.8 SECONDS (9.4-12.5)
--- NOTE | 2018-09-21 20:18 | CARD ---
APPROVED REPORT Date of service: 09/21/2018 EKG Measurement Heart [id number] <Conclusion> Electronic Atrial Pacemaker Marilu.
[2018-09-22 04:30] VITALS: BMI 25.9
[2018-09-22] MEDS: SACUBITRIL 24mg/VALSARTAN 26mg tab PO SCH ×2 (11:14→17:35)
[2018-09-22] MEDS: Milrinone 20mg/100ml D5W 100 ML IV PRN (11:32)
--- NOTE | 2018-09-22 16:34 | CON ---
DATE OF CONSULTATION: 09/22/2018 CONSULT SERVICE: Cardiology. REASON FOR CONSULTATION: Cardiac evaluation, history of cardiomyopathy, history of pacemaker defibrillator admitted with decompensated congestive heart failure for cardiac evaluation. BRIEF CLINICAL HISTORY: This is an 83-year-old male with past medical history significant for congestive heart failure, low ejection fraction of 20%, ME in 1998, history of defibrillator, possible questionable history of paroxysmal atrial fibrillation, came in with generalized feeling of weak and shortness of breath. PAST MEDICAL HISTORY: Significant for ME 20 years ago, history of cardiomyopathy, paroxysmal atrial fibrillation on Eliquis, being followed by Dr. Mandujano. Past history is also significant for congestive heart failure, atrial fibrillation, cardioversion and ICD placement, being followed by Dr. Mandujano at [facility] with a history of cardiac catheterization 3 years ago, according to him, he was told no significant blockage, medical treatment recommended, but mentioned heart muscles are weak. PAST SURGICAL HISTORY: Significant for cataract surgery, history of AICD, initial was in 2005 and then 3-4 years ago it was replaced, history of paroxysmal atrial fibrillation. CURRENT MEDICATIONS: The patient is at home taking nitroglycerin, metoprolol, lisinopril, atorvastatin, and 10 mg Eliquis. ALLERGIES: NO KNOWN DRUG ALLERGIES. REVIEW OF SYSTEMS: As per HPI. Recently, the patient had an echocardiography done at on 03/17/2018, that revealed ejection fraction 20%, trace aortic regurgitation, aortic sclerosis versus mild aortic stenosis, moderate mitral regurgitation, moderate tricuspid regurgitation, RV systolic pressure of 67, moderate pulmonary hypertension, trace to mild pulmonary insufficiency, IVC dilated, small left pleural effusion noted. PHYSICAL EXAMINATION: GENERAL: Height of the patient 5 feet 2 inch, weight of the patient 190 pounds, body mass index of 35 kg/m2. VITAL SIGNS: Rest of the vitals, temperature afebrile, heart rate is 71, and blood pressure 102/63. HEENT: PERRLA intact. NECK: Supple. No carotid bruits or thyromegaly. CHEST: Clear to auscultation. HEART: S1 and S2, regular. ABDOMEN: Soft. EXTREMITY: Clubbing and cyanosis negative. LABORATORY DATA: WBC 8.4, hemoglobin 11.1, hematocrit 34.5 and platelet count 227. Chemistry shows sodium 137, potassium 4.7, chloride 100, carbon dioxide 29, anion gap of 6, BUN 50, creatinine 2.6 and BNP 44,100. IMPRESSION: An 83-year-old male with past medical history significant for myocardial infarction, history of cardiomyopathy, decreased left ventricular ejection fraction of 20%-25%, paroxysmal atrial fibrillation, status post automatic implantable cardioverter-defibrillator, who was recently admitted in March with decompensated congestive heart failure. The patient again admitted with decompensated congestive heart failure, moderate mitral regurgitation, moderate tricuspid regurgitation, pulmonary hypertension, right ventricular systolic pressure 67, ejection fraction of 20% on Primacor. Admitted with acute decompensated congestive heart failure secondary to systolic dysfunction. RECOMMENDATION: We will start IV Lasix, Primacor, Coreg, and Entresto as the blood pressure is tolerated. We will follow with you. Thank you, Dr. Meza, for providing us the opportunity in taking care of the patient, Gabriel Ramirez. Dayan Saez MD
--- NOTE | 2018-09-22 18:16 | HP ---
DATE OF EXAM: 09/22/2018 HISTORY OF PRESENT ILLNESS: The patient is an 83-year-old male admitted through the emergency department on 09/21/2018 with increasing shortness of breath and generalized weakness. The patient denied any chest pain. No nausea, no vomiting, no diaphoresis. He is admitted to the telemetry unit for further evaluation and monitoring. PAST MEDICAL HISTORY: The patient's past medical history includes coronary artery disease, history of congestive heart failure, paroxysmal atrial fibrillation and chronic kidney disease as well as hypertension, hypercholesterolemia and anxiety disorder. PAST SURGICAL HISTORY: The patient has no significant past surgical history. The past surgical history includes status post pacemaker placement. CURRENT MEDICATIONS: Include Lasix 40 mg daily, lisinopril 2.5 mg daily, Lipitor 10 mg daily, amiodarone 200 mg daily, Ambien 10 mg at bedtime p.r.n., Valium 10 mg twice daily p.r.n., carvedilol 12.5 mg twice daily, tramadol 50 mg twice daily p.r.n. Current medications also include Eliquis 2.5 mg twice daily. ALLERGIES: THE PATIENT HAS NO KNOWN DRUG ALLERGIES. FAMILY HISTORY: Noncontributory. SOCIAL HISTORY: The patient has a history of smoking in the remote past. There is no history of alcohol use. REVIEW OF SYSTEMS: The patient denies any nausea, vomiting. There is no melena. No bright red blood per rectum. No jaundice. No fever, no chills. No rash. PHYSICAL EXAMINATION GENERAL: The patient is a well-developed male in no acute distress. VITAL SIGNS: Blood pressure 102/66, temperature 98.6, pulse 71, respiratory rate 20. HEENT: Head is normocephalic, atraumatic. Pupils equal, round, and reactive to light. Extraocular movements intact. NECK: Supple. No thyromegaly. No carotid bruit. No adenopathy. LUNGS: Show bibasilar rales. HEART: Regular rate and rhythm. There is a pacemaker in the left chest wall. ABDOMEN: Soft, nontender. Bowel sounds are normoactive. EXTREMITIES: With trace bipedal edema. NEUROLOGIC: The patient is awake and oriented x3 without focal sensory or motor deficits. SKIN: Warm and dry. LABORATORY DATA: WBC is 8.4, hemoglobin 11.1, hematocrit 34.5. Sodium is 137, potassium 4.7, chloride 100, CO2 of 28, BUN 50, creatinine 2.6, glucose 141. BNP is elevated at 44,100. Chest x-ray shows no active disease. IMPRESSION 1. Congestive heart failure. 2. History of hypertension, hypertensive cardiovascular disease. 3. Coronary artery disease. 4. Paroxysmal atrial fibrillation on Eliquis. 5. Chronic kidney disease. 6. Degenerative joint disease. 7. Hypercholesterolemia. PLAN: The patient is admitted to the telemetry unit. We will obtain a Cardiology consult from Dr. Batres/Dr. Saez. Intravenous Lasix and milrinone have been started. Social work for discharge planning. Rustam Meza JD/
--- NOTE | 2018-09-23 06:35 | CP.PCM.PN ---
Subjective - Date & Time of Evaluation Date of Evaluation: 09/23/18 Time of Evaluation: 06:35 - Subjective Subjective: I was on the floor. Nurse asked me to intervene. BP was 92/58--->94/56. She had received an order to hold Milrinone from medical billing instructor. Patient has no complaints. She is sleeping now. Medical record was reviewed. This 83 year old male was admitted with increasing sob and generalized weakness/CHF. Has PMH of CHF, HTN, CKD, DJD, HLD,Paroxysmal atrial fibrillation. Objective - Vital Signs/Intake and Output Vital Signs (last 24 hours): Temp Pulse Resp BP Pulse Ox 97.8 F 71 20 94/58 L 95 09/23/18 06:00 09/23/18 06:00 09/23/18 06:00 09/23/18 06:00 09/23/18 06:00 Intake and Output: 09/22/18 09/23/18 18:59 06:59 Intake Total 1136 Output Total 1080 Balance 56 - Medications Medications: Current Medications Acetaminophen (Tylenol 325mg Tab) 650 mg PO Q6H PRN PRN Reason: Fever >100.4 F Amiodarone HCl (Cordarone) 200 mg PO QAM [facility] Last Admin: 09/22/18 11:15 Dose: 200 mg Apixaban (Eliquis) 2.5 mg PO BID [facility]; Protocol Last Admin: 09/22/18 17:36 Dose: 2.5 mg Atorvastatin Calcium (Lipitor) 10 mg PO DIN [facility] Last Admin: 09/22/18 17:35 Dose: 10 mg Carvedilol (Coreg) 3.125 mg PO BID [facility] Last Admin: 09/22/18 17:35 Dose: 3.125 mg Diazepam (Valium) 5 mg PO BID PRN; Protocol PRN Reason: Anxiety Milrinone Lactate/Dextrose (Primacor 20mg/100ml D5w) 100 mls @ 4.926 mls/hr IV .[id number] PRN; Protocol PRN Reason: TITRATE PER MD ORDER Stop: 09/24/18 07:00 Last Admin: 09/22/18 11:32 Dose: 0.2 mcg/kg/min, 4.926 mls/hr Lisinopril (Zestril) 2.5 mg PO DAILY [facility] Last Admin: 09/22/18 11:15 Dose: 2.5 mg Sacubitril/Valsartan (Entresto 24 Mg-26 Mg Tablet) 1 each PO BID [facility] Last Admin: 09/22/18 17:35 Dose: 1 each Zolpidem Tartrate (Ambien) 5 mg PO HS PRN; Protocol PRN Reason: Insomnia - Labs Labs: 09/21/18 19:00 09/21/18 19:00 PT 21.8 SECONDS (9.4-12.5) H 09/21/18 19:00 INR 1.96 09/21/18 19:00 APTT 38.7 Seconds (26.9-38.3) H 09/21/18 19:00 - Constitutional Appears: Well, No Acute Distress - Head Exam Head Exam: ATRAUMATIC, NORMAL INSPECTION, NORMOCEPHALIC - Eye Exam Eye Exam: Normal appearance - ENT Exam ENT Exam: Normal External Ear Exam - Neck Exam Neck Exam: Normal Inspection - Respiratory Exam Respiratory Exam: NORMAL BREATHING PATTERN - Cardiovascular Exam Cardiovascular Exam: absent: JVD - GI/Abdominal Exam GI & Abdominal Exam: absent: Distended - Rectal Exam Rectal Exam: Deferred - Exam Additional comments: Deferred. - Extremities Exam Extremities Exam: Normal Inspection - Back Exam Back Exam: NORMAL INSPECTION - Neurological Exam Additional comments: Asleep - Psychiatric Exam Additional comments: Asleep - Skin Skin Exam: Normal Color Assessment and Plan - Assessment and Plan (Free Text) Assessment: Hypotension 2* to Milrinone? CHF CAD Paroxysmal atrial fibrillation. CKD DJD HLD. Plan: Hold Milrinone . Continue present management.
--- NOTE | 2018-09-23 07:10 | CP.PCM.PN ---
Subjective - Date & Time of Evaluation Date of Evaluation: 09/23/18 Time of Evaluation: 06:20 - Subjective Subjective: Awake, alert, no distress Reason for consultation and follow up: Cardiac evaluation of shortness of breath, decompensated systolic dysfunction congestive heart failure, history of cardiomyopathy, AICD, Seen and examined by me and Dr. Saez Objective - Vital Signs/Intake and Output Vital Signs (last 24 hours): Temp Pulse Resp BP Pulse Ox 97.8 F 71 20 94/58 L 95 09/23/18 06:00 09/23/18 06:00 09/23/18 06:00 09/23/18 06:00 09/23/18 06:00 Intake and Output: 09/23/18 09/23/18 06:59 18:59 Intake Total 1136 Output Total 1080 Balance 56 - Medications Medications: Current Medications Acetaminophen (Tylenol 325mg Tab) 650 mg PO Q6H PRN PRN Reason: Fever >100.4 F Amiodarone HCl (Cordarone) 200 mg PO QAM [facility] Last Admin: 09/22/18 11:15 Dose: 200 mg Apixaban (Eliquis) 2.5 mg PO BID [facility]; Protocol Last Admin: 09/22/18 17:36 Dose: 2.5 mg Atorvastatin Calcium (Lipitor) 10 mg PO DIN [facility] Last Admin: 09/22/18 17:35 Dose: 10 mg Carvedilol (Coreg) 3.125 mg PO BID [facility] Last Admin: 09/22/18 17:35 Dose: 3.125 mg Diazepam (Valium) 5 mg PO BID PRN; Protocol PRN Reason: Anxiety Milrinone Lactate/Dextrose (Primacor 20mg/100ml D5w) 100 mls @ 4.926 mls/hr IV .[id number] PRN; Protocol PRN Reason: TITRATE PER MD ORDER Stop: 09/24/18 07:00 Last Admin: 09/22/18 11:32 Dose: 0.2 mcg/kg/min, 4.926 mls/hr Lisinopril (Zestril) 2.5 mg PO DAILY [facility] Last Admin: 09/22/18 11:15 Dose: 2.5 mg Sacubitril/Valsartan (Entresto 24 Mg-26 Mg Tablet) 1 each PO BID [facility] Last Admin: 09/22/18 17:35 Dose: 1 each Zolpidem Tartrate (Ambien) 5 mg PO HS PRN; Protocol PRN Reason: Insomnia - Labs Labs: 09/21/18 19:00 09/21/18 19:00 PT 21.8 SECONDS (9.4-12.5) H 09/21/18 19:00 INR 1.96 09/21/18 19:00 APTT 38.7 Seconds (26.9-38.3) H 09/21/18 19:00 - Constitutional Appears: Non-toxic, No Acute Distress - Head Exam Head Exam: NORMAL INSPECTION, NORMOCEPHALIC - Eye Exam Eye Exam: Normal appearance Pupil Exam: NORMAL ACCOMODATION - ENT Exam ENT Exam: Mucous Membranes Moist - Respiratory Exam Respiratory Exam: Decreased Breath Sounds, Clear to Ausculation Bilateral, NORMAL BREATHING PATTERN - Cardiovascular Exam Cardiovascular Exam: +S1, +S2 Additional comments: AICD/PPM V pacing - GI/Abdominal Exam GI & Abdominal Exam: Soft, Normal Bowel Sounds - Extremities Exam Extremities Exam: Full ROM - Neurological Exam Neurological Exam: Alert, Awake - Psychiatric Exam Psychiatric exam: Normal Affect, Normal Mood - Skin Skin Exam: Dry, Normal Color, Warm Assessment and Plan - Assessment and Plan (Free Text) Assessment: An 83 year old male who came in to the ER due to weakness and shortness of breath. History of diabtes, anemia, arthritis, sciatica, former smoker, congest sean heart failure, [place] in 1998, cardiomyopathy, atrial fibrillation,on Eliquis,cardioversion, AICD/PPM initially in 2005 then replaced 3-4 years ago. He follows up by Dr. Mandujano at [facility], [place]. History of cardiac catheterization 3 years ago with no significant disease/stenosis. Recent echo on 03/17/18 showed trace aortic regurgitation, moderate mitral and tricuspid regurgitation, RVSP 67 mmHg, moderate pulmonary hypertension, trace to mild pulmonic valve regurgitation. Admitted last March 2018 for CHF. Started on Primacor drip, Continue Primacor drip and hold for SBP below 90. Will continue Primacor for next 24 hours. Denies shortness of breath. Plan: Denies shortness of breath Continue Primacor for the next 24 hours (hold if SBP below 90's) Heart rate controlled On Aminodarone 200 mg daily, Eliquis 2.5 mg BID,Lipitor 10 mg daily, Coreg 3.125 mg BID, Lisinopril 2.5 mg daily, Entresto 1 tab BID Continue current treatment Continue current medication Eliquis for anticoagulation (Atrial fibrillation) Will follow up Plan and treatment discussed with Dr. Saez
[2018-09-23 07:14] LABS: BASO # 0.03 K/mm3 (0.0-2.0); BASO % 0.4 % (0.0-3.0); EOS # 0.2 (0.0-0.7); EOS % 2.6 % (1.5-5.0); HEMOGLOBIN 9.6 g/dL (14.0-18.0); LYMPH # 1.1 (1.2-3.4); LYMPH % 13.4 % (22.0-35.0); MEAN CELL VOLUME 79.3 fl (80.0-105.0); MEAN CORPUSCULAR HEMOGLOBIN 24.8 pg (25.0-35.0); MEAN CORPUSCULAR HGB CONC 31.3 g/dl (31.0-37.0); MEAN PLATELET VOLUME 11.6 fl (7.0-11.0); MONO # 0.9 (0.1-0.6); MONO % 11.3 % (1.0-6.0); RBC 3.87 10^6/uL (3.5-6.1); RED CELL DISTRIBUTION WIDTH 19.6 % (11.5-14.5); WHITE BLOOD COUNT 8.2 10^3/uL (4.5-11.0)
[2018-09-23 07:34] LABS: ALB/GLOB RATIO 1.1 (1.1-1.8); ALBUMIN 3.1 g/dL (3.0-4.8)
[2018-09-23] MEDS: Milrinone 20mg/100ml D5W 100 ML IV PRN (08:40)
--- NOTE | 2018-09-23 09:12 | CP.PCM.PN ---
Subjective - Date & Time of Evaluation Date of Evaluation: 09/23/18 Time of Evaluation: 08:45 - Subjective Subjective: resting comortably, NAD, denies chest pain, no SOB Objective - Vital Signs/Intake and Output Vital Signs (last 24 hours): Temp Pulse Resp BP Pulse Ox 97.8 F 72 20 112/72 95 09/23/18 06:00 09/23/18 08:40 09/23/18 06:00 09/23/18 08:40 09/23/18 06:00 Intake and Output: 09/23/18 09/23/18 06:59 18:59 Intake Total 1136 100 Output Total 1080 Balance 56 100 - Medications Medications: Current Medications Acetaminophen (Tylenol 325mg Tab) 650 mg PO Q6H PRN PRN Reason: Fever >100.4 F Amiodarone HCl (Cordarone) 200 mg PO QAM [facility] Last Admin: 09/22/18 11:15 Dose: 200 mg Apixaban (Eliquis) 2.5 mg PO BID [facility]; Protocol Last Admin: 09/22/18 17:36 Dose: 2.5 mg Atorvastatin Calcium (Lipitor) 10 mg PO DIN [facility] Last Admin: 09/22/18 17:35 Dose: 10 mg Carvedilol (Coreg) 3.125 mg PO BID [facility] Last Admin: 09/22/18 17:35 Dose: 3.125 mg Diazepam (Valium) 5 mg PO BID PRN; Protocol PRN Reason: Anxiety Milrinone Lactate/Dextrose (Primacor 20mg/100ml D5w) 100 mls @ 4.926 mls/hr IV .[id number] PRN; Protocol PRN Reason: TITRATE PER MD ORDER Stop: 09/24/18 07:00 Last Admin: 09/23/18 08:40 Dose: 0.2 mcg/kg/min, 4.926 mls/hr Lisinopril (Zestril) 2.5 mg PO DAILY [facility] Last Admin: 09/22/18 11:15 Dose: 2.5 mg Sacubitril/Valsartan (Entresto 24 Mg-26 Mg Tablet) 1 each PO BID [facility] Last Admin: 09/22/18 17:35 Dose: 1 each Zolpidem Tartrate (Ambien) 5 mg PO HS PRN; Protocol PRN Reason: Insomnia - Labs Labs: 09/23/18 07:00 09/23/18 07:00 PT 21.8 SECONDS (9.4-12.5) H 09/21/18 19:00 INR 1.96 09/21/18 19:00 APTT 38.7 Seconds (26.9-38.3) H 09/21/18 19:00 - Respiratory Exam Respiratory Exam: Rales, NORMAL BREATHING PATTERN - Cardiovascular Exam Cardiovascular Exam: REGULAR RHYTHM - GI/Abdominal Exam GI & Abdominal Exam: Soft, Normal Bowel Sounds - Extremities Exam Extremities Exam: Normal Inspection - Neurological Exam Neurological Exam: Alert, Awake - Skin Skin Exam: Dry, Warm Assessment and Plan (1) Acute CHF Status: Acute (2) Atrial fibrillation Status: Chronic (3) Coronary artery disease Status: Chronic - Assessment and Plan (Free Text) Plan: continue IV Lasix, milrinone, cardiology follow-up
[2018-09-23] MEDS: SACUBITRIL 24mg/VALSARTAN 26mg tab PO SCH ×2 (09:34→18:24)
[2018-09-23] MEDS: guaiFENesin 100 mg/5 ml Syrup UD PO PRN ×2 (11:41→22:28)
[2018-09-24] MEDS: Milrinone 20mg/100ml D5W 100 ML IV PRN (05:15)
--- NOTE | 2018-09-24 07:08 | CP.PCM.PN ---
Subjective - Date & Time of Evaluation Date of Evaluation: 09/24/18 Time of Evaluation: 06:20 - Subjective Subjective: Awake, alert, no distress, denies shortness of breath Reason for consultation and follow up: Cardiac evaluation of shortness of breath , decompensated systolic dysfunction congestive heart failure, history of cardiomyopathy, AICD, Seen and examined by me and Dr. Saez Objective - Vital Signs/Intake and Output Vital Signs (last 24 hours): Temp Pulse Resp BP Pulse Ox 98.3 F 73 20 115/71 97 09/24/18 00:01 09/24/18 02:00 09/24/18 00:01 09/24/18 00:01 09/24/18 00:01 Intake and Output: 09/24/18 09/24/18 06:59 18:59 Intake Total 660 Output Total 750 Balance -90 - Medications Medications: Current Medications Acetaminophen (Tylenol 325mg Tab) 650 mg PO Q6H PRN PRN Reason: Fever >100.4 F Amiodarone HCl (Cordarone) 200 mg PO QAM [facility] Last Admin: 09/23/18 09:34 Dose: 200 mg Apixaban (Eliquis) 2.5 mg PO BID [facility]; Protocol Last Admin: 09/23/18 18:24 Dose: 2.5 mg Atorvastatin Calcium (Lipitor) 10 mg PO DIN [facility] Last Admin: 09/23/18 18:24 Dose: 10 mg Carvedilol (Coreg) 3.125 mg PO BID [facility] Last Admin: 09/23/18 18:46 Dose: 3.125 mg Diazepam (Valium) 5 mg PO BID PRN; Protocol PRN Reason: Anxiety Guaifenesin (Robitussin) 100 mg PO Q4H PRN PRN Reason: Cough Last Admin: 09/23/18 22:28 Dose: 100 mg Lisinopril (Zestril) 2.5 mg PO DAILY [facility] Last Admin: 09/23/18 09:34 Dose: 2.5 mg Sacubitril/Valsartan (Entresto 24 Mg-26 Mg Tablet) 1 each PO BID [facility] Last Admin: 09/23/18 18:24 Dose: 1 each Zolpidem Tartrate (Ambien) 5 mg PO HS PRN; Protocol PRN Reason: Insomnia - Labs Labs: 09/23/18 07:00 09/23/18 07:00 PT 21.8 SECONDS (9.4-12.5) H 09/21/18 19:00 INR 1.96 09/21/18 19:00 APTT 38.7 Seconds (26.9-38.3) H 09/21/18 19:00 - Constitutional Appears: Non-toxic, No Acute Distress - Head Exam Head Exam: NORMAL INSPECTION, NORMOCEPHALIC - Eye Exam Eye Exam: Normal appearance Pupil Exam: NORMAL ACCOMODATION - ENT Exam ENT Exam: Mucous Membranes Moist, Normal Exam - Respiratory Exam Respiratory Exam: Decreased Breath Sounds, Clear to Ausculation Bilateral, NORMAL BREATHING PATTERN - Cardiovascular Exam Cardiovascular Exam: +S1, +S2 Additional comments: AICD/PPM V pacing - GI/Abdominal Exam GI & Abdominal Exam: Soft, Normal Bowel Sounds - Extremities Exam Extremities Exam: Full ROM - Neurological Exam Neurological Exam: Alert, Awake, Oriented x3 - Psychiatric Exam Psychiatric exam: Normal Affect, Normal Mood - Skin Skin Exam: Dry, Normal Color, Warm Assessment and Plan - Assessment and Plan (Free Text) Assessment: An 83 year old male who came in to the ER due to weakness and shortness of breath. History of diabetes, anemia, arthritis, sciatica, former smoker, congestive heart failure, [place] in 1998, cardiomyopathy, atrial fibrillation,on Eliquis,cardioversion, AICD/PPM initially in 2005 then replaced 3-4 years ago. He follows up by Dr. Mandujano at [facility]. History of cardiac catheterization 3 years ago with no significant disease/stenosis. Recent echo on 03/17/18 showed trace aortic regurgitation, moderate mitral and tricuspid regurgitation, RVSP 67 mmHg, moderate pulmonary hypertension, trace to mild pulmonic valve regurgitation. Admitted last March 2018 for CHF.Admitted for decompensated systolic dysfunction congestive heart failure, started on Primacor drip for 48 hours. Discontinue Primacor drip today. Denies shortness of breath. Eliquis for anticoagulation (Atrial fibrillation).Symptoms clinically improved. Discharge planning. Discontinue telemetry. Plan: Clinically improved symptoms Denies shortness of breath Disc ontinue Primacor lauren Heart rate stable, V- pacing Blood pressure stable On Aminodarone 200 mg daily, Eliquis 2.5 mg BID,Lipitor 10 mg daily, Coreg 3.125 mg BID, Lisinopril 2.5 mg daily, Entresto 1 tab BID Continue current treatment Continue current medication Discontinue telemetry May discharge from cardiac standpoint follow up in office in 2-3 weeks Discharge planning Will follow up Plan and treatment discussed with Dr. Saez
[2018-09-24] MEDS: SACUBITRIL 24mg/VALSARTAN 26mg tab PO SCH ×2 (09:04→18:10)
[2018-09-24] MEDS ORDERED: Potassium Chloride 20 mEq ER Tab PO ONE (09:37)
[2018-09-24 12:50] VITALS: TEMP 98
--- NOTE | 2018-09-24 15:50 | CP.PCM.PN ---
Subjective - Date & Time of Evaluation Date of Evaluation: 09/24/18 Time of Evaluation: 11:15 - Subjective Subjective: NAD, denies chest pain, no SOB Objective - Vital Signs/Intake and Output Vital Signs (last 24 hours): Temp Pulse Resp BP Pulse Ox 98 F 71 18 104/68 94 L 09/24/18 12:00 09/24/18 12:00 09/24/18 12:00 09/24/18 12:00 09/24/18 06:00 Intake and Output: 09/24/18 09/24/18 06:59 18:59 Intake Total 720 540 Output Total 750 600 Balance -30 -60 - Medications Medications: Current Medications Acetaminophen (Tylenol 325mg Tab) 650 mg PO Q6H PRN PRN Reason: Fever >100.4 F Last Admin: 09/24/18 09:57 Dose: 650 mg Amiodarone HCl (Cordarone) 200 mg PO QAM [facility] Last Admin: 09/24/18 09:04 Dose: 200 mg Apixaban (Eliquis) 2.5 mg PO BID [facility]; Protocol Last Admin: 09/24/18 09:04 Dose: 2.5 mg Atorvastatin Calcium (Lipitor) 10 mg PO DIN [facility] Last Admin: 09/23/18 18:24 Dose: 10 mg Carvedilol (Coreg) 3.125 mg PO BID [facility] Last Admin: 09/24/18 09:05 Dose: 3.125 mg Diazepam (Valium) 5 mg PO BID PRN; Protocol PRN Reason: Anxiety Furosemide (Lasix) 40 mg PO DAILY [facility] Last Admin: 09/24/18 09:57 Dose: 40 mg Guaifenesin (Robitussin) 100 mg PO Q4H PRN PRN Reason: Cough Last Admin: 09/23/18 22:28 Dose: 100 mg Lisinopril (Zestril) 2.5 mg PO DAILY [facility] Last Admin: 09/24/18 09:04 Dose: 2.5 mg Sacubitril/Valsartan (Entresto 24 Mg-26 Mg Tablet) 1 each PO BID [facility] Last Admin: 09/24/18 09:04 Dose: 1 each Zolpidem Tartrate (Ambien) 5 mg PO HS PRN; Protocol PRN Reason: Insomnia - Labs Labs: 09/23/18 07:00 09/23/18 07:00 PT 21.8 SECONDS (9.4-12.5) H 09/21/18 19:00 INR 1.96 09/21/18 19:00 APTT 38.7 Seconds (26.9-38.3) H 09/21/18 19:00 - Respiratory Exam Respiratory Exam: Clear to Ausculation Bilateral, NORMAL BREATHING PATTERN - Cardiovascular Exam Cardiovascular Exam: REGULAR RHYTHM - GI/Abdominal Exam GI & Abdominal Exam: Soft, Normal Bowel Sounds - Extremities Exam Extremities Exam: Pedal Edema - Neurological Exam Neurological Exam: Abnormal Gait, Alert, Awake - Skin Skin Exam: Dry, Warm Assessment and Plan (1) Acute CHF Status: Acute (2) Atrial fibrillation Status: Chronic (3) Coronary artery disease Status: Chronic - Assessment and Plan (Free Text) Plan: PT eval, TCU eval, SW for DC planning
--- NOTE | 2018-09-24 15:52 | PQF ---
PROVIDER RESPONSE TEXT: Patient with estimated GFR 22, consistant with CKD Stage 4. REVIEWER QUERY TEXT: Kidney Disease, Chronic CKD Stage Physician?s Documentation Request This Form is Not a Permanent Document in the Medical Record Pt Name: SANDIE CEDENO MR #: [id number] Payor: MEDICARE HMO Unit/Bed: [id number] Adm Date: 09/21/2018 8:32:00 PM Reviewer: Jaja Saunders Ext. Query Date: 09/23/2018 10:42:04 AM Kidney Disease, Chronic CKD Stage [id number] By submitting this query, we are merely seeking further clarification of documentation to accurately reflect all conditions that you are monitoring, evaluating, treating or that extend the hospitalizati on or utilize additional resources of care. Please utilize your independent clinical judgment when ad dressing the question(s) below. Dear Doctor Rustam Meza, The patient?s Clinical Indicators include: 4/24 CKD noted in your HP, BUN- 50, Cr- 2.6, GFR- 24. Please document Stage CKD POA Chronic Kidney Disease (CKD) is documented in the Medical Record. Please specify the disease stage ( includes probable or suspected) Such as: -- Chronic kidney disease Stage 1 -- Chronic kidney disease Stage 2 -- Chronic kidney disease Stage 3 -- Chronic kidney disease Stage 4 -- Chronic kidney disease Stage 5 -- Chronic kidney disease Stage 5, requiring dialysis -- End Stage Renal Disease -- Other, please specify Stages are defined by the [employer] as follows: CKD Stage I GFR >= 90 ml / min per 1.73 m2 and persistent albuminuria CKD Stage 2 GFR between 60 and 89 with persistent albuminuria CKD Stage 3 GFR between 30 and 59 CKD Stage 4 GFR between 15 and 29 CKD Stage 5 GFR between <15 or End Stage Renal Disease PLEASE DOCUMENT ANY ADDITIONAL DIAGNOSES AND/OR SPECIFICITY IN THE PROGRESS NOTES AND/OR DISCHARGE [facility]. Clinically unable to determine/unknown Disagree with the above request Need to discuss Query created by: Jaja Saunders on 09/23/2018 10:42 AM Electronically signed by: Rustam Meza MD 09/24/2018 3:48 PM
[2018-09-24 18:06] VITALS: BP 110/70; PULSE 68; RESP 16; O2SAT 97
--- NOTE | 2018-09-25 16:05 | DS ---
HOSPITAL COURSE: The patient is an 83-year-old male admitted through the emergency department on 09/21/2018 with shortness of breath and generalized weakness. The patient was in congestive heart failure, was started on IV Lasix and milrinone. He was seen in consultation by Cardiology Dr. Saez and Dr. Mendoza. He had an uneventful hospital course and signed out AMA on 09/24/2018. At the time of discharge, his vital signs were stable. Physical examination is as per progress note of 09/24/2018. IMPRESSION: 1. Congestive heart failure. 2. Hypertension, hypertensive cardiovascular disease. 3. Coronary artery disease. 4. Paroxysmal atrial fibrillation on Eliquis 5. Chronic kidney disease stage IV. 6. Degenerative joint disease. 7. Hypercholesterolemia. The patient was discharged on the following medications, Lasix 40 mg daily, lisinopril 2.5 mg daily, Lipitor 10 mg daily, amiodarone 200 mg daily, Ambien 10 mg at bedtime, Valium 10 mg twice daily, carvedilol 12.5 mg twice daily, tramadol 50 mg twice daily p.r.n. pain Eliquis 2.5 mg daily. The patient will be maintained on a heart healthy diet. Activities ad libitum. He will be followed as an outpatient within the next 1-2 weeks. AXEL Rodriguez MD [facility] # [id number]
== END 2018-09-24 18:55 | disposition left against medical advice (07) | DRG 291 ==
LOC: ED 16:58 → ERH 20:32 → 2RNO 22:10 → 3RNO 09-24 14:27
PROVIDERS: ADMIT Internal Medicine; ATTEND Internal Medicine
DX: I13.0 Hypertensive heart and chronic kidney disease with heart failure and stage 1 through stage 4 chronic kidney disease, or unspecified chronic kidney disease (principal); I50.23 Acute on chronic systolic (congestive) heart failure; N18.4 Chronic kidney disease, stage 4 (severe); E11.22 Type 2 diabetes mellitus with diabetic chronic kidney disease; I25.10 Atherosclerotic heart disease of native coronary artery without angina pectoris; I48.0 Paroxysmal atrial fibrillation; E78.00 Pure hypercholesterolemia, unspecified; I42.9 Cardiomyopathy, unspecified; I27.20 Pulmonary hypertension, unspecified; I95.2 Hypotension due to drugs; T46.3X5A Adverse effect of coronary vasodilators, initial encounter; M19.90 Unspecified osteoarthritis, unspecified site; E78.5 Hyperlipidemia, unspecified; I08.1 Rheumatic disorders of both mitral and tricuspid valves; I25.2 Old myocardial infarction; Z79.01 Long term (current) use of anticoagulants; Z87.891 Personal history of nicotine dependence; Z95.810 Presence of automatic (implantable) cardiac defibrillator

== ENCOUNTER 2018-09-27 18:51 | Inpatient (IN) | payer MEDICARE, OTHER ==
[2018-09-27 19:30] VITALS: BMI 26.5
--- NOTE | 2018-09-27 20:02 | ED PDOC ---
Arrival/HPI - General Chief Complaint: Dizziness/Lightheaded Time Seen by Provider: 09/27/18 19:05 - History of Present Illness Narrative History of Present Illness (Text): 83 yr old male w/ hx of hypertension, hyperlipidemia, DM2, AFIB on eliquis, pacemaker, CHF, DOREEN p/w dizziness and fall. Pt notes dizziness since waking up this morning at 6 am, described as a lightheadedness. He notes running errands today and was waiting at the bus stop when he felt lightheaded and fell onto his face while trying to get onto the bus. He denies any LOC, and only notes a mild headache. No chest pain or shortness of breath. No abdominal pain, constipation or diarrhea. No dark or bloody stool. No neck stiffness, fever, chills or night sweats. No other complaints. Past Medical History - Infectious Disease Hx of Infectious Diseases: None - Cardiac Hx Cardiac Disorders: Yes Hx Congestive Heart Failure: Yes Hx Hypertension: Yes Hx Pacemaker: Yes - Pulmonary Hx Respiratory Disorders: No - Neurological Hx Neurological Disorder: No - HEENT Hx HEENT Disorder: Yes Hx Cataracts: Yes Hx Glaucoma: Yes - Renal Hx Renal Failure: Yes (high BUN(as per PT)) - Endocrine/Metabolic Hx Endocrine Disorders: Yes Hx Diabetes Mellitus Type 2: Yes (borderline/diet control) - Hematological/Oncological Hx Blood Disorders: Yes Hx Anemia: Yes - Integumentary Hx Dermatological Disorder: No - Musculoskeletal/Rheumatological Hx Musculoskeletal Disorders: Yes Hx Arthritis: Yes Hx Falls: No Other/Comment: sciatica - Gastrointestinal Hx Gastrointestinal Disorders: No - Genitourinary/Gynecological Hx Genitourinary Disorders: No - Psychiatric Hx Psychophysiologic Disorder: No Hx Substance Use: No - Surgical History Other/Comment: pacemaker 2010, cataract removal - Anesthesia Hx Anesthesia: Yes - Suicidal Assessment Feels Threatened In Home Enviroment: No Family/Social History Family/Social History: Unknown Family HX Smoking Status: Former Smoker Hx Alcohol Use: No Hx Substance Use: No Allergies/Home Meds Allergies/Adverse Reactions: Allergies No Known Allergies Allergy (Verified 09/27/18 19:33) Home Medications: Home Meds Medication Instructions Recorded Confirmed Apixaban [Eliquis] 5 mg PO DAILY 09/09/14 03/16/18 Atorvastatin Calcium [Lipitor] 10 mg PO DAILY 09/09/14 03/16/18 Nitroglycerin [Nitroglycerin 0.4 mg SL PRN PRN 09/09/14 03/16/18 Lingual Aerosol] Furosemide [Lasix] 40 mg PO BID 03/16/18 03/16/18 Lisinopril 30 mg PO DAILY 03/16/18 03/16/18 Metoprolol Tartrate [Lopressor] 50 mg PO BID 03/16/18 03/16/18 Review of Systems - Review of Systems Constitutional: Fatigue. absent: Weight Change Eyes: absent: Vision Changes, Photophobia ENT: absent: Hearing Changes, Tinnitus Respiratory: absent: SOB, Cough, Sputum Cardiovascular: absent: Chest Pain, Palpitations Gastrointestinal: absent: Abdominal Pain, Stool Changes Genitourinary Male: absent: Dysuria, Frequency Musculoskeletal: absent: Arthralgias, Back Pain Skin: absent: Rash, Pruritis, Skin Lesions Neurological: Headache, Dizziness. absent: Focal Weakness, Facial Droop, Disequilibrium Psychiatric: absent: Anxiety, Depression Physical Exam Vital Signs Temp Pulse Resp BP Pulse Ox 09/27/18 19:30 98.7 F 69 16 121/72 98 Temperature: Afebrile Blood Pressure: Normal Pulse: Regular Respiratory Rate: Normal Appearance: Positive for: Well-Appearing, Non-Toxic, Comfortable Pain Distress: None Mental Status: Positive for: Alert and Oriented X 3 Finger Stick Blood Glucose: 145 - Systems Exam Head: Present: Abrasion (L cheek, superficial abrasion). No: Tenderness Pupils: Present: PERRL Extroacular Muscles: Present: EOMI Conjunctiva: Present: Normal Ears: Present: Normal, NORMAL TM, Normal Canal. No: Erythema Mouth: Present: Moist Mucous Membranes Pharnyx: Present: Normal. No: ERYTHEMA, EXUDATE Nose (Internal): Present: Normal Inspection, No Active Bleeding. No: Septal Hematoma Neck: Present: Normal Range of Motion. No: Meningeal Signs, MIDLINE TENDERNESS, Paraspinal Tenderness, JVD Respiratory/Chest: Present: Clear to Auscultation, Good Air Exchange. No: Respiratory Distress, Accessory Muscle Use Cardiovascular: Present: Regular Rate and Rhythm, Normal S1, S2. No: Murmurs Abdomen: No: Tenderness, Distention, Peritoneal Signs, Guarding Back: Present: Normal Inspection. No: CVA Tenderness, Midline Tenderness Upper Extremity: Present: Normal Inspection, NORMAL PULSES, Neurovascularly Inta ct. No: Cyanosis, Edema, Swelling Lower Extremity: Present: Normal Inspection, NORMAL PULSES, Neurovascularly Intact. No: Edema, Swelling Neurological: Present: GCS=15, CN II-XII Intact, Speech Normal Skin: Present: Warm, Dry, Normal Color. No: Rashes Psychiatric: Present: Alert, Oriented x 3, Normal Insight, Normal Concentration Medical Decision Making ED Course and Treatment: 83 yr old male w/ hx of hypertension, hyperlipidemia, DM2, AFIB on eliquis, pacemaker, CHF, DOREEN p/w dizziness and fall. Head trauma on eliquis 3 hours prior, will require CTH, labs. Pt in NAD, normal neuro exam at this time. Pt notes last tetanus <5 years prior. EK, nsr, no stemi 09/27/18 22:07 Neuro exam remains unremarkable. CTH unremarkable CT C spine w/ dense atherosclertoic plaques seen b/l Labs largely unremarkable. Previous Cr 2.8. troponin negative Given age, weakness and fall earlier today on eliquis and CT findings recommend obs for further eval Pt in NAD, agreeable to plan. Denies any other complaints at this time. Appreciate consult w/ Dr. Derrick samuels: endorsed full case as well pas pending BNP and UA, accepts under obs to his service. 09/27/18 22:12 - RAD Interpretation Radiology Orders: 09/27/18 19:50 HEAD W/O CONTRAST [CT] Stat CHEST PORTABLE [RAD] Stat 09/27/18 19:52 CERVICAL SPINE W/O CONTRAST [CT] Stat Disposition/Present on Arrival - Present on Arrival Any Indicators Present on Arrival: No History of DVT/PE: No History of Uncontrolled Diabetes: No Urinary Catheter: No History of Decub. Ulcer: No History Surgical Site Infection Following: None - Disposition Have Diagnosis and Disposition been Completed?: Yes Diagnosis: Weakness, Fall Disposition: HOSPITALIZED Disposition Time: 22:10 Patient Problems: Current Active Problems Problem Status Onset Fall Acute Weakness Acute Condition: STABLE Discharge Instructions (ExitCare): Weakness (ED) Referrals: Rustam Meza JD, MD [Primary Care Provider] - Follow up with primary Forms: [place] ([place])
[2018-09-27 20:07] LABS: BASO # 0.03 K/mm3 (0.0-2.0); BASO % 0.4 % (0.0-3.0); EOS # 0.1 (0.0-0.7); EOS % 0.8 % (1.5-5.0); HEMOGLOBIN 10.9 g/dL (14.0-18.0); LYMPH # 1.2 (1.2-3.4); LYMPH % 13.9 % (22.0-35.0); MEAN CELL VOLUME 79.7 fl (80.0-105.0); MEAN CORPUSCULAR HEMOGLOBIN 25.1 pg (25.0-35.0); MEAN CORPUSCULAR HGB CONC 31.5 g/dl (31.0-37.0); MEAN PLATELET VOLUME 11.6 fl (7.0-11.0); MONO # 0.7 (0.1-0.6); MONO % 8.4 % (1.0-6.0); RBC 4.34 10^6/uL (3.5-6.1); RED CELL DISTRIBUTION WIDTH 19.8 % (11.5-14.5); WHITE BLOOD COUNT 8.3 10^3/uL (4.5-11.0)
[2018-09-27 20:15] LABS: INR 1.98; PARTIAL THROMBOPLASTIN TIME 39.4 Seconds (26.9-38.3)
[2018-09-27 20:25] LABS: ALB/GLOB RATIO 1.2 (1.1-1.8); ALBUMIN 3.9 g/dL (3.0-4.8); CALCIUM 8.9 mg/dL (8.4-10.5)
[2018-09-27 20:26] LABS: TROPONIN I 0.03 ng/mL
[2018-09-28] MEDS ORDERED: Pneumococcal 23-Valent Vaccine IM ONE (03:28)
[2018-09-28 05:09] LABS: PH,URINE 5.5 (4.7-8.0); URINE BILIRUBIN NEGATIVE (NEGATIVE); URINE BLOOD NEGATIVE (NEGATIVE); URINE GLUCOSE (UA) NEGATIVE (NEGATIVE); URINE LEUKOCYTE ESTERASE NEGATIVE Leu/uL (NEGATIVE); URINE PROTEIN 30 mg/dL (<30 mg/dL)
[2018-09-28 05:32] LABS: URINE APPEARANCE CLOUDY (CLEAR); URINE COLOR DARK YELLOW (YELLOW)
[2018-09-28 06:14] LABS: URINE HYALINE CAST 0 - 2 /hpf; URINE WBC 0 - 2 /hpf (0-6)
--- NOTE | 2018-09-28 07:45 | CT ---
Date of service: 09/27/2018 PROCEDURE: CT HEAD WITHOUT CONTRAST. HISTORY: fall on eliquis COMPARISON: None available. TECHNIQUE: Axial computed tomography images were obtained through the head/brain without intravenous contrast. Radiation dose: Total exam DLP = 1197.63 mGy-cm. This CT exam was performed using one or more of the following dose reduction techniques: Automated exposure control, adjustment of the mA and/or kV according to patient size, and/or use of iterative reconstruction technique. FINDINGS: HEMORRHAGE: No intracranial hemorrhage. BRAIN: No mass effect or edema. No atrophy or chronic microvascular ischemic changes. VENTRICLES: Unremarkable. No hydrocephalus. CALVARIUM: Unremarkable. PARANASAL SINUSES: Unremarkable as visualized. No significant inflammatory changes. MASTOID AIR CELLS: Unremarkable as visualized. No inflammatory changes. OTHER FINDINGS: The report concurs with the preliminary [facility] report IMPRESSION: No acute intracranial findings
--- NOTE | 2018-09-28 07:48 | CT ---
Date of service: 09/27/2018 PROCEDURE: CT Cervical Spine without contrast HISTORY: fall, dizzuy COMPARISON: None available. TECHNIQUE: Axial computed tomography images were obtained of the cervical spine without the use of intravenous contrast. Coronal and sagittal reformatted images were created and reviewed. Radiation dose: Total exam DLP = 519.78 mGy-cm. This CT exam was performed using one or more of the following dose reduction techniques: Automated exposure control, adjustment of the mA and/or kV according to patient size, and/or use of iterative reconstruction technique. FINDINGS: VERTEBRAE: No fracture. Normal alignment. No destructive bony lesion. DISCS/SPINAL CANAL/NEURAL FORAMINA: No significant central canal or neural foraminal stenosis. Discs heights are grossly preserved. PARASPINAL SOFT TISSUES: Unremarkable. Carotid calcifications OTHER FINDINGS: The report concurs with the preliminary [facility] report IMPRESSION: Unremarkable CT of the cervical spine.
--- NOTE | 2018-09-28 08:43 | RAD ---
Date of service: 09/27/2018 HISTORY: dizzy COMPARISON: Portable chest 09/21/2018. TECHNIQUE: 1 view obtained. FINDINGS: LUNGS: No active pulmonary disease. PLEURA: No significant pleural effusion identified, no pneumothorax apparent. CARDIOVASCULAR: Calcific atherosclerotic changes are seen related to the thoracic aorta. Cardiomegaly appears stable. No pulmonary vascular congestion. AICD/pacemaker unchanged. OSSEOUS STRUCTURES: No significant abnormalities. VISUALIZED UPPER ABDOMEN: Normal. OTHER FINDINGS: None. IMPRESSION: Stable cardiomegaly. No pulmonary vascular congestion. AICD/pacemaker again evident. No infiltrate, pleural effusion or pneumothorax identified.
--- NOTE | 2018-09-28 09:19 | CARD ---
APPROVED REPORT Date of service: 09/27/2018 EKG Measurement Heart [id number] <Conclusion> Electronic atrial and ventricular pacemaker
--- NOTE | 2018-09-28 18:22 | CON ---
DATE: 09/28/2018 NEUROLOGY CONSULT CHIEF COMPLAINT: Dizziness. HISTORY OF PRESENT ILLNESS: This is an 83-year-old man with a history of hypertension, hyperlipidemia, type 2 diabetes mellitus, AFib on Eliquis, pacemaker, and CHF, had dizziness and lightheadedness. He mentioned when he woke up this morning and was running errands, while waiting at the bus stop he had difficulty in getting on the bus, he got lightheaded. He also had shortness of breath with walking more than two blocks. He had an elevated BNP of 56,400 and low systolic and diastolic blood pressure of 94/56, hemoglobin A1c 7.9. CAT scan of the head and cervical spine showed no acute abnormalities. Currently, there is some mild scattered wheezing. PAST MEDICAL HISTORY: As above. FAMILY HISTORY: Noncontributory. SOCIAL HISTORY: No illicit drug use, smoking, or EtOH abuse. MEDICATIONS: Reviewed by nurses' reconciliation sheet. REVIEW OF SYSTEMS: A 14-point review of systems is negative except as per the HPI. LABORATORY DATA: Sodium is 139, potassium 4.5, chloride 101, carbon dioxide 26, BUN of 52, creatinine 3, and random glucose 130. BNP is 56,400. PHYSICAL EXAMINATION: GENERAL: The patient is sitting up in bed, in no acute distress. VITAL SIGNS: Temperature 98, pulse 86, blood pressure 104/71, respiratory rate 18, and oxygen saturation 96% on room air. HEENT: Head is atraumatic and normocephalic. PERRLA. Extraocular muscles intact. NECK: Supple. No JVD. No adenopathy noted. LUNGS: Clear to auscultation. No adventitious sounds. HEART: S1 and S2. Normal rate and normal rhythm. No murmurs, rubs, or gallops. ABDOMEN: Soft and nontender. Nondistended. Bowel sounds present. EXTREMITIES: No clubbing. No cyanosis. Peripheral pulses 2+, felt bilaterally. There is trace pedal edema bilaterally. NEUROLOGIC: The patient is alert and oriented to person, place, month, and year. Speech is fluent without any errors. Cranial nerves II through XII are intact. Motor exam; moves all extremities equally. Toes are downgoing bilaterally. Sensory exam; decreased light touch to pinprick up to the calves bilaterally. Decreased vibration at the toes. DTRs are 2+ throughout and 1 at both knees and ankles. Coordination; [id number] intact. No dysmetria noted. Gait is deferred for now. IMPRESSION: Dizziness and lightheadedness secondary to transient cerebral hypoperfusion, superimposed on underlying congestive heart failure exacerbation given the BNP is 56,400 at this time and also this patient has underlying diabetic peripheral neuropathy, which does interfere with his balance. RECOMMENDATIONS: 1. Physical and occupational therapy for gait and balance exercises. 2. Keep systolic blood pressure between 130s to 140s and diastolic in 70s to 80s. 3. Diabetic diet advised. 4. Follow up outpatient for underlying neuropathy and dizziness. 5. Orthostatic vital signs are suggested. Thank you for this consult. Morgan Marques MD
--- NOTE | 2018-09-28 20:22 | CON ---
DATE: 09/28/2018 CONSULT SERVICE: Cardiology. REASON FOR CONSULTATION: Followup of cardiac evaluation, history of cardiomyopathy, status post AICD, rule out congestive heart failure, admitted with generalized weakness and shortness of breath. BRIEF CLINICAL HISTORY: This is an 83-year-old male with past medical history significant for congestive heart failure, low ejection fraction 20%, NV in 1998, history of coronary artery disease, history of defibrillator, who recently discharged yesterday after being admitted with decompensated congestive heart failure, came in with complaint of shortness of breath and generalized weakness, lightheadedness, and dizziness. Denies any chest pain. Denies any palpitation. Denies any shortness of breath now. PAST MEDICAL HISTORY: Significant for NV 20 years ago; history of cardiomyopathy; history of paroxysmal atrial fibrillation, on Eliquis, being followed by Dr. Mandujano at [facility]; history of significant congestive heart failure; AFib as mentioned; history of cardioversion; AICD placement, being followed by Dr. Mandujano at [facility]; history of cardiac catheterization 3 years ago according to him he was told no significant blockage, medical treatment recommended, but mentioned heart muscles are weak. History of multiple admission with decompensated congestive heart failure and history of chronic kidney disease. PAST SURGICAL HISTORY: Significant for cataract surgery, history of AICD initially placed 2005 then upgraded 3 to 4 years ago, it was replaced and history of paroxysmal atrial fibrillation. CURRENT MEDICATIONS: The patient is taking at home metoprolol tartarate 50 mg twice a day, lisinopril 30 mg daily, furosemide 40 mg twice a day, atorvastatin 10 mg daily, and Eliquis 5 mg twice a day. ALLERGIES: NO KNOWN DRUG ALLERGY. RECENT CARDIAC WORKUP FOLLOWS: The patient had echocardiography 03/17/2018 that revealed four chamber dilatation consistent with cardiomyopathy, ejection fraction severely impaired in the range of 20%, at that time the patient was on Primacor; trace aortic regurgitation; mild aortic stenosis versus aortic sclerosis; moderate mitral regurgitation; moderate tricuspid regurgitation; RV systolic pressure of 67 consistent with moderate pulmonary hypertension; trace to mild pulmonary insufficiency; dilated IVC; pericardial effusion; small left pleural effusion dated 03/17/2018; history of recently admission for decompensated congestive heart failure on 09/22/2018 and was treated with IV Primacor, later on the patient was discharged on Coreg 3.125 mg, lisinopril and Entresto one p.o. b.i.d., and Eliquis. Admitted with complaint of generalized weakness. new medication Entresto was started, I am not sure the patient took it or not and also Eliquis was decreased to 2.5 mg because of renal insufficiency. REVIEW OF SYSTEMS: As per HPI. PHYSICAL EXAMINATION: VITAL SIGNS: Height of the patient is 5 feet 10 inches, weight of the patient 185 pounds, and body mass index of 26.5 kg/m2. Temperature afebrile, heart rate 84, and blood pressure 121/75. HEENT: PERRLA. Extraocular muscles are intact. NECK: Supple. No carotid bruits or thyromegaly. CHEST: Clear to auscultation. HEART: S1 and S2 regular. ABDOMEN: Soft. EXTREMITY: Clubbing and cyanosis negative. LABORATORY DATA: Blood workup; WBC 8.3, hemoglobin 10, hematocrit 34.6, and platelet count 330. Chemistry; sodium 130, potassium 4.5, chloride 101, carbon dioxide 26, anion gap of 17, BUN 52, and creatinine 3. BNP 56,400. Troponin 0.04. IMPRESSION: An 83-year-old male with past medical history significant for myocardial infarction, coronary artery disease, ischemic cardiomyopathy, recent echo ejection fraction 20% to 25%, four chamber dilation, and paroxysmal atrial fibrillation. Last recently the patient admitted with acute decompensated congestive heart failure, initially treated with IV Primacor and later on the patient was discharged on amiodarone 200 mg daily, Eliquis 2.5 mg p.o. b.i.d., Lipitor 10 mg daily, Coreg 3.125 mg daily, and Entresto and lisinopril were held, now the patient admitted with generalized weakness. RECOMMENDATIONS: We will check orthostatic hypotension, monitored closely renal function, and restart Entresto the patient can tolerate. Discontinue lisinopril, cautious diuresis. Also we will adjust the dose of Eliquis because of the age and renal insufficiency. Overall, the patient's critical long-term prognosis is guarded. The patient upon discharged being followed up with Dr. Mandujano at [facility]. We will follow with you. Thank you Dr. Meza for providing us the opportunity in taking care of Gabriel. Dayan Saez MD
--- NOTE | 2018-09-29 00:30 | HP ---
DATE OF EXAM: 09/28/2018 HISTORY OF PRESENT ILLNESS: Text. HISTORY OF PRESENT ILLNESS: The patient is an 83-year-old male admitted through the emergency department on 09/27/2018 after a fall. The patient complained of dizziness, lightheadedness and fell on his face while getting onto a bus in the street. He denied any loss of consciousness. There was no witnessed seizure. The patient has been recently admitted for increasing shortness of breath, generalized weakness and difficulty walking and has been treated for CHF with low ejection fraction and was given IV milrinone by Dr. Saez approximately 1 week ago. PAST MEDICAL HISTORY Includes coronary artery disease, congestive heart failure, paroxysmal atrial fibrillation and chronic kidney disease, hypertension, hypercholesterolemia and anxiety disorder. PAST SURGICAL HISTORY: Includes status post pacemaker placement. CURRENT MEDICATIONS: Include Lasix 40 mg daily, lisinopril 2.5 mg daily, Lipitor 10 mg daily, amiodarone 200 mg daily, Ambien 10 mg at bedtime, Valium 10 mg twice daily, carvedilol 12.5 mg twice daily, tramadol 50 mg twice daily and Eliquis 2.5 mg twice daily. ALLERGIES: THE PATIENT HAS NO KNOWN DRUG ALLERGIES. FAMILY HISTORY: Noncontributory. SOCIAL HISTORY: The patient has a history of smoking in the remote past. There is no history of alcohol use. REVIEW OF SYSTEMS: The patient denies any chest pain. No shortness of breath. There is some mild dyspnea on exertion, some unsteady gait and dizziness. No weakness. There is only mild swelling of the legs. There is no melena. No bright red blood per rectum. No fever, no chills. No jaundice. No rash. PHYSICAL EXAMINATION: GENERAL: The patient is a well-developed male in no acute distress. VITAL SIGNS: Blood pressure 121/75, temperature 98.7, pulse 74, respiratory rate 18. HEENT: Head is normocephalic, atraumatic. Pupils equal, round, reactive to light. Extraocular movements intact. NECK: Supple. No thyromegaly. No carotid bruit. No adenopathy. LUNGS: Clear. HEART: Irregularly irregular. ABDOMEN: Soft, nontender. Bowel sounds are normoactive. EXTREMITIES: Without cyanosis, clubbing. There is trace bipedal edema. NEUROLOGIC: The patient is awake and oriented x3 without focal sensory or motor deficits. Gait is slightly ataxic. SKIN: Warm and dry. LABORATORY DATA: WBC is 8.3, hemoglobin 10.9, hematocrit 34.6. Sodium 139, potassium 4.5, chloride 101, CO2 of 26, BUN 52, creatinine 3.0, glucose 130. BNP is elevated at 56,400. Troponin is 0.[address] scan of the head shows no acute bleeds or infarct. CT scan of the cervical spine showed no cervical spine fracture. IMPRESSION: 1. D ataxia/status post fall. 2. Hypertension, hypertensive cardiovascular disease/congestive heart failure. 3. Coronary artery disease. 4. Paroxysmal atrial fibrillation, on Eliquis. 5. Chronic kidney disease. 6. Degenerative joint disease. 7. Hypercholesterolemia. PLAN: The patient is admitted to the telemetry unit. We will obtain Cardiology consult with Dr. Saez, Neurology consult with Dr. Marques. Will give IV Lasix, physical therapy evaluation and treatment. Social work for discharge planning. Rustam Meza JD/
--- NOTE | 2018-09-29 07:41 | CP.PCM.PN ---
Subjective - Date & Time of Evaluation Date of Evaluation: 09/29/18 Time of Evaluation: 06:30 - Subjective Subjective: Awake. alert, no distress Reason for consultation and follow up:Cardiac evaluation of shortness of breath, rule out congestive heart failure, history of cardiomyopathy, post AICD, admitted for generalized weakness and shortness of breath Seen and examined by me and Dr. Saez Objective - Vital Signs/Intake and Output Vital Signs (last 24 hours): Temp Pulse Resp BP Pulse Ox 97.8 F 72 20 123/86 98 09/28/18 22:51 09/28/18 22:51 09/28/18 22:51 09/28/18 23:09 09/28/18 22:51 Intake and Output: 09/29/18 09/29/18 06:59 18:59 Intake Total 240 Output Total 400 Balance -160 - Medications Medications: Current Medications Apixaban (Eliquis) 2.5 mg PO BID [facility]; Protocol Last Admin: 09/28/18 17:40 Dose: 2.5 mg Carvedilol (Coreg) 12.5 mg PO BID [facility] Last Admin: 09/28/18 11:25 Dose: 12.5 mg Carvedilol (Coreg) 3.125 mg PO BID [facility] Last Admin: 09/28/18 17:40 Dose: 3.125 mg Diazepam (Valium) 10 mg PO BID PRN; Protocol PRN Reason: Anxiety Furosemide (Lasix) 60 mg IVP Q12 [facility] Last Admin: 09/28/18 23:09 Dose: Not Given Sacubitril/Valsartan (Entresto 24 Mg-26 Mg Tablet) 1 each PO BID [facility] Tramadol HCl (Ultram) 50 mg PO TID PRN PRN Reason: Pain, moderate (4-7) Last Admin: 09/28/18 17:38 Dose: 50 mg - Labs Labs: 09/27/18 19:57 09/27/18 19:57 PT 22.0 SECONDS (9.4-12.5) H 09/27/18 19:57 INR 1.98 09/27/18 19:57 APTT 39.4 Seconds (26.9-38.3) H 09/27/18 19:57 - Constitutional Appears: Non-toxic, No Acute Distress - Head Exam Head Exam: NORMAL INSPECTION, NORMOCEPHALIC - Eye Exam Eye Exam: Normal appearance Pupil Exam: NORMAL ACCOMODATION - ENT Exam ENT Exam: Mucous Membranes Moist, Normal Exam - Neck Exam Neck Exam: Full ROM - Respiratory Exam Respiratory Exam: Decreased Breath Sounds, Clear to Ausculation Bilateral, NORMAL BREATHING PATTERN - Cardiovascular Exam Cardiovascular Exam: +S1, +S2 Additional comments: AICD - GI/Abdominal Exam GI & Abdominal Exam: Soft, Normal Bowel Sounds - Extremities Exam Extremities Exam: Full ROM, Normal Capillary Refill - Neurological Exam Neurological Exam: Alert, Awake - Psychiatric Exam Psychiatric exam: Normal Affect, Normal Mood - Skin Skin Exam: Dry, Normal Color, Warm Assessment and Plan - Assessment and Plan (Free Text) Assessment: An 83 year old male who came in to the ER due to lightheadedness. History of hypertension, hyperlipidemia, diabetes, atrial fibrillation on eliquis, myocardial infarction in 1998, history of cardioversion, AICD/Pacemaker, con gestive heart failure, renal insufficiency,dizziness and fall. Follows up with Dr. Mandujano at [facility]. Last cardiac cath was 3 years ago and reported to no significant blockage. Echo done on 03/17/18 showed dilated cardiomyopathy LVEF 20% with Primacor, trace AR, moderate MR/TR, RVSP 67 mmHg, moderate pulmonary hypertension. Chest X ray, no evidence of vascular congestion. Admitted for generalized weakness. Orthostatic vital signs to rule out hypotension. Decreased dose of Eliquis due to renal insufficiency, Restart Entresto as tolerated. Plan: No distress Orthostatic vital signs Decreased dose of Eliquis to 2.5 mg BID Restart Entresto as tolerated On Eliquis 2.5 mg BID, Coreg 12.5 mg BID,Lasix 60 mg every 12 hours Entresto 1 tab BID Continue current treatment Continue current medications Will follow up Plan and treatment discussed with Dr. Saez
[2018-09-29] MEDS: SACUBITRIL 24mg/VALSARTAN 26mg tab PO SCH ×2 (09:57→17:24)
--- NOTE | 2018-09-29 11:38 | CP.PCM.PN ---
Subjective - Date & Time of Evaluation Date of Evaluation: 09/29/18 Time of Evaluation: 09:15 - Subjective Subjective: NAD, denies chest pain, no SOB Objective - Vital Signs/Intake and Output Vital Signs (last 24 hours): Temp Pulse Resp BP Pulse Ox 98 F 70 18 114/80 94 L 09/29/18 06:00 09/29/18 06:00 09/29/18 06:00 09/29/18 06:00 09/29/18 06:00 Intake and Output: 09/29/18 09/29/18 06:59 18:59 Intake Total 240 240 Output Total 400 Balance -160 240 - Medications Medications: Current Medications Apixaban (Eliquis) 2.5 mg PO BID [facility]; Protocol Last Admin: 09/29/18 09:56 Dose: 2.5 mg Carvedilol (Coreg) 12.5 mg PO BID [facility] Last Admin: 09/28/18 11:25 Dose: 12.5 mg Carvedilol (Coreg) 3.125 mg PO BID [facility] Last Admin: 09/29/18 09:56 Dose: 3.125 mg Diazepam (Valium) 10 mg PO BID PRN; Protocol PRN Reason: Anxiety Furosemide (Lasix) 60 mg IVP Q12 [facility] Last Admin: 09/28/18 23:09 Dose: Not Given Furosemide (Lasix) 40 mg PO 0800,1400 [facility] Sacubitril/Valsartan (Entresto 24 Mg-26 Mg Tablet) 1 each PO BID [facility] Last Admin: 09/29/18 09:57 Dose: 1 each Tramadol HCl (Ultram) 50 mg PO TID PRN PRN Reason: Pain, moderate (4-7) Last Admin: 09/28/18 17:38 Dose: 50 mg - Labs Labs: 09/27/18 19:57 09/27/18 19:57 PT 22.0 SECONDS (9.4-12.5) H 09/27/18 19:57 INR 1.98 09/27/18 19:57 APTT 39.4 Seconds (26.9-38.3) H 09/27/18 19:57 - Respiratory Exam Respiratory Exam: Clear to Ausculation Bilateral, NORMAL BREATHING PATTERN - Cardiovascular Exam Cardiovascular Exam: REGULAR RHYTHM - GI/Abdominal Exam GI & Abdominal Exam: Soft, Normal Bowel Sounds - Extremities Exam Extremities Exam: Normal Inspection - Neurological Exam Neurological Exam: Abnormal Gait, Alert, Awake - Skin Skin Exam: Dry, Warm Assessment and Plan (1) Fall Status: Acute (2) Weakness Status: Acute (3) Atrial fibrillation Status: Chronic (4) Coronary artery disease Status: Chronic - Assessment and Plan (Free Text) Plan: PT eval and treat, DC amiodarone due to ataxic gait, cardiology follow-up
[2018-09-30 07:19] LABS: BASO # 0.04 K/mm3 (0.0-2.0); BASO % 0.5 % (0.0-3.0); EOS # 0.3 (0.0-0.7); EOS % 2.9 % (1.5-5.0); HEMOGLOBIN 10.7 g/dL (14.0-18.0); LYMPH # 1.5 (1.2-3.4); LYMPH % 16.7 % (22.0-35.0); MEAN CELL VOLUME 77.9 fl (80.0-105.0); MEAN CORPUSCULAR HEMOGLOBIN 25.2 pg (25.0-35.0); MEAN CORPUSCULAR HGB CONC 32.3 g/dl (31.0-37.0); MONO # 1.1 (0.1-0.6); MONO % 12.6 % (1.0-6.0); RBC 4.25 10^6/uL (3.5-6.1); RED CELL DISTRIBUTION WIDTH 19.6 % (11.5-14.5); WHITE BLOOD COUNT 8.7 10^3/uL (4.5-11.0)
[2018-09-30 07:45] LABS: CALCIUM 8.5 mg/dL (8.4-10.5)
[2018-09-30 08:07] VITALS: PULSE 71; RESP 19; TEMP 97.4; O2SAT 93
--- NOTE | 2018-09-30 08:10 | CP.PCM.PN ---
Subjective - Date & Time of Evaluation Date of Evaluation: 09/30/18 Time of Evaluation: 06:45 - Subjective Subjective: Lying in bed, Awake. alert, no distress, feels okay Reason for consultation and follow up:Cardiac evaluation of shortness of breath, rule out congestive heart failure, history of cardiomyopathy, post AICD, admitted for generalized weakness and shortness of breath Seen and examined by me and Dr. Saez Objective - Vital Signs/Intake and Output Vital Signs (last 24 hours): Temp Pulse Resp BP Pulse Ox 97.4 F L 71 19 106/70 93 L 09/30/18 06:00 09/30/18 06:00 09/30/18 06:00 09/30/18 06:00 09/30/18 06:00 Intake and Output: 09/30/18 09/30/18 06:59 18:59 Intake Total 420 Output Total 400 Balance 20 - Medications Medications: Current Medications Apixaban (Eliquis) 2.5 mg PO BID [facility]; Protocol Last Admin: 09/29/18 17:24 Dose: 2.5 mg Carvedilol (Coreg) 12.5 mg PO BID [facility] Last Admin: 09/28/18 11:25 Dose: 12.5 mg Carvedilol (Coreg) 3.125 mg PO BID [facility] Last Admin: 09/29/18 17:24 Dose: 3.125 mg Diazepam (Valium) 10 mg PO BID PRN; Protocol PRN Reason: Anxiety Furosemide (Lasix) 60 mg IVP Q12 [facility] Last Admin: 09/28/18 23:09 Dose: Not Given Furosemide (Lasix) 40 mg PO 0800,1400 [facility] Last Admin: 09/29/18 17:24 Dose: 40 mg Sacubitril/Valsartan (Entresto 24 Mg-26 Mg Tablet) 1 each PO BID [facility] Last Admin: 09/29/18 17:24 Dose: 1 each Tramadol HCl (Ultram) 50 mg PO TID PRN PRN Reason: Pain, moderate (4-7) Last Admin: 09/29/18 12:33 Dose: 50 mg - Labs Labs: 09/30/18 07:00 09/30/18 07:00 PT 22.0 SECONDS (9.4-12.5) H 09/27/18 19:57 INR 1.98 04/29/19 19:57 APTT 39.4 Seconds (26.9-38.3) H 09/27/18 19:57 - Constitutional Appears: Non-toxic, No Acute Distress - Eye Exam Eye Exam: Normal appearance Pupil Exam: NORMAL ACCOMODATION - ENT Exam ENT Exam: Mucous Membranes Moist, Normal Exam - Respiratory Exam Respiratory Exam: Decreased Breath Sounds, Clear to Ausculation Bilateral, NORMAL BREATHING PATTERN - Cardiovascular Exam Cardiovascular Exam: +S1, +S2 Additional comments: AICD - GI/Abdominal Exam GI & Abdominal Exam: Soft, Normal Bowel Sounds - Extremities Exam Extremities Exam: Full ROM, Normal Capillary Refill - Neurological Exam Neurological Exam: Alert, Awake - Psychiatric Exam Psychiatric exam: Normal Affect, Normal Mood - Skin Skin Exam: Dry, Normal Color, Warm Assessment and Plan - Assessment and Plan (Free Text) Assessment: An 83 year old male who came in to the ER due to lightheadedness. History of hypertension, hyperlipidemia, diabetes, atrial fibrillation on eliquis, myocardial infarction in 1998, history of cardioversion, AICD/Pacemaker, congestive heart failure, renal insufficiency,dizziness and fall. Follows up with Dr. Mandujano at [facility]. Last cardiac cath was 3 years ago and reported to no significant blockage. Echo done on 03/17/18 showed dilated cardiomyopathy LVEF 20% with Primacor, trace AR, moderate MR/TR, RVSP 67 mmHg, moderate pulmonary hypertension. Chest X ray, no evidence of vascular congestion. Admitted for generalized weakness. Decreased dose of Eliquis due to renal insufficiency, Restarted Entresto as tolerated. Concern about Entresto for cognitive reasons, will continue for now, Amiodarone discontinued for gait disturbance concern. Patient feels okay. Clinically improved. Cardiac status stable. Plan: No distress,feels okay Heart rate stable Blood pressure stable Cardiac status stable Clinically improved On Eliquis 2.5 mg BID, Coreg 3.125 mg BID,Lasix 40 mg BID Entresto 1 tab BID Continue current treatment Continue current medications Discharge planning Will follow up Plan and treatment discussed with Dr. Saez
[2018-09-30] MEDS: SACUBITRIL 24mg/VALSARTAN 26mg tab PO SCH (09:35)
[2018-09-30 09:36] VITALS: BP 108/69
--- NOTE | 2018-10-01 06:16 | DS ---
HOSPITAL COURSE: The patient is an 83-year-old male admitted through the emergency department on 09/27/2018, status post fall. CT scan of the head showed no acute bleed or infarct. There was no witnessed seizure. The patient was seen in consultation by Cardiology, Dr. Saez. There was no evidence of any cardiac event. The patient had an uneventful hospital course, was seen by physical therapy, and discharged to home in stable condition today. PHYSICAL EXAMINATION: VITAL SIGNS: Blood pressure 106/70, temperature 97.4, pulse 71, and respiratory rate 19. LUNGS: Clear. HEART: Regular rate and rhythm. ABDOMEN: Soft and nontender. Bowel sounds are normoactive. EXTREMITIES: Without cyanosis, clubbing, or edema. NEUROLOGIC: The patient is awake and oriented x3 without focal sensory or motor deficits. Gait was within normal limits. LABORATORY DATA: WBC is 8.7, hemoglobin is 10.7, and hematocrit is 33.1. Sodium 136, potassium 4, chloride 102 CO2 of 24, BUN 60, creatinine 0.9, and glucose 126. IMPRESSION: 1. Gait ataxia, possibly secondary to amiodarone. 2. Hypertension, hypertensive cardiovascular disease, and congestive heart failure. 3. Coronary artery disease. 4. Paroxysmal atrial fibrillation, on Eliquis. 5. Chronic kidney disease stage III. 6. Degenerative joint disease. 7. Hypercholesterolemia. DISCHARGE INSTRUCTIONS: The patient was discharged to home on the following medications; Lasix 40 mg daily, lisinopril 2.5 mg daily, Lipitor 10 mg daily, Ambien 10 mg at bedtime, Valium 10 mg twice daily, carvedilol 12.5 mg twice daily, tramadol 50 mg twice daily, and Eliquis 2.5 mg twice daily. He will be maintained on a heart-healthy diet. Activities ad libitum. He will be followed up as an outpatient within next 1-2 weeks. AXEL Rodriguez MD
== END 2018-09-30 13:50 | disposition home or self-care (01) | DRG 91 ==
LOC: ED 18:51 → ERH 23:51 → OBSVTOIN 23:55 → ERH 09-28 01:27 → 5RSO 09-28 03:00
PROVIDERS: ADMIT Internal Medicine; ATTEND Internal Medicine
DX: R26.0 Ataxic gait (principal); I50.23 Acute on chronic systolic (congestive) heart failure; I13.0 Hypertensive heart and chronic kidney disease with heart failure and stage 1 through stage 4 chronic kidney disease, or unspecified chronic kidney disease; I42.0 Dilated cardiomyopathy; T46.2X5A Adverse effect of other antidysrhythmic drugs, initial encounter; N18.3 Chronic kidney disease, stage 3 (moderate); E11.22 Type 2 diabetes mellitus with diabetic chronic kidney disease; E11.42 Type 2 diabetes mellitus with diabetic polyneuropathy; E78.00 Pure hypercholesterolemia, unspecified; E78.5 Hyperlipidemia, unspecified; I48.0 Paroxysmal atrial fibrillation; I25.10 Atherosclerotic heart disease of native coronary artery without angina pectoris; I25.5 Ischemic cardiomyopathy; M19.90 Unspecified osteoarthritis, unspecified site; I25.2 Old myocardial infarction; Z95.810 Presence of automatic (implantable) cardiac defibrillator; Z79.01 Long term (current) use of anticoagulants; Z87.891 Personal history of nicotine dependence